=== PATIENT | female | born 1985 | race Caucasian/White ===

== ENCOUNTER 2023-07-04 13:24 | Outpatient (AMB) | payer OTHER, SELFPAY ==
--- NOTE | 2023-07-04 13:25 | MHC.PC.OV ---
Vital Signs 07/04/23 13:26 Height 5 ft 4 in Weight 234 lb BMI 40.2 BP 128/78 Blood Pressure Location Lt brachial Position Sitting Pulse 80 Pulse Source Pulse Oximeter Pulse Oximetry (%) 95 Oxygen Delivery Method Room Air Intake Visit Reasons: New patient-requesting physical Allergies No Known Allergies Allergy (Verified 07/04/23 13:26) Medication List - Last Reconciled 07/04/23 by Aneudy Soni MD albuterol sulfate 90 mcg/actuation (Ventolin HFA) 2 puffs inhalation Q4-6H PRN 30 days baclofen 10 mg PO TID hydroxyzine HCl 50 mg PO TID PRN methadone 155 mg PO DAILY methadone 155 mg PO DAILY omeprazole 20 mg PO DAILY sertraline 50 mg PO DAILY sofosbuvir-velpatasvir 200-50 mg (Epclusa) 1 tab PO DAILY trazodone 50 mg PO BEDTIME PRN Tobacco use date assessed: 07/04/23 Dental Screening Dental Screen Date: 07/04/23 Did you have a dental visit in the last 12 months?: No Did you have a dental problem in the last 6 months where you did not have access to dental care?: No Was dental information given to patient?: No HPI New patient-requesting physical HPI Details 38-year-old obese female smoker with hypertension with a history of polysubstance abuse, bipolar disorder. Patient has a history of endocarditis of the tricuspid valve, GERD PTSD. Patient last seen in 2020. Review of the notes April 2023 ER visit for drug testing. February 2023 ER visit homeless had suicidal tendencies. Diagnosis exacerbation of chronic bipolar disorder with opiate dependence. August 2022 ER visit for IV heroin having left arm cellulitis [facility] Medical History (Updated 07/04/23 @ 14:10 by Aneudy Soni MD) Hepatitis C Tobacco abuse Hypertension GERD (gastroesophageal reflux disease) Bipolar disorder Migraine Asthma Endocarditis of tricuspid valve Polysubstance abuse Surgical History No pertinent past surgical history Family History (Updated 07/04/23 @ 13:55 by Aneudy Soni MD) Father No problems noted. Mother No problems noted. Maternal Aunt Cancer Cervical cancer Maternal Uncle Cancer Other Mental health disorder Substance use disorder Social History (Updated 07/04/23 @ 13:56 by Aneudy Soni MD) Housing: Other (In a program) Alcohol intake: former Patient Tobacco Use Status: Current everyday Tobacco user Tobacco use type: Cigarette Cigarette Packs Per Day: 1 Cigarettes Per Day: 20 Years Smoked: started 12 years old e-Cigarette/Vaping Use: Never Used Second Hand Smoke Exposure: No service: No Current occupational status: disabled Cognitive needs: No Hearing needs: No Vision needs: No Questionnaire PHQ-9 Over the last 2 weeks, how often have you been bothered by any of the following problems? 1. Little interest or pleasure in doing things: not at all 2. Feeling down, depressed, or hopeless: several days 3. Trouble falling or staying asleep, or sleeping too much: several days 4. Feeling tired or having little energy: several days 5. Poor appetite or overeating: not at all 6. Feeling bad about yourself - or that you are a failure or have let yourself or your family down: several days 7. Trouble concentrating on things, such as reading the newspaper or watching television: more than half the days 8. Moving or speaking so slowly that other people could have noticed. Or the opposite - being so fidgety or restless that you have been moving around a lot more than usual: nearly every day 9. Thoughts that you would be better off or of hurting yourself in some way: not at all Total score: 9 Depression Screening Interpretation: Positive Depression Screening Follow-up: Community Mental Health Worker F/U Source: Developed by Drs. Misbah Calvo, Sandra Torres, Solomon Hamlin and colleagues, with an educational gabe from [employer]. Thrive Questionnaire Date Thrive assessed: 07/04/23 I am a: Patient What is your living situation today?: I have a steady place to live Within the past 12 months, did the food you bought not last and you didn't have the money to get more?: Never true Within the past 12 months, did you worry whether your food would run out before you got money to buy more?: Never true Do you have trouble paying for medicines?: No Do you have trouble getting transportation to medical appointments?: No Do you have trouble paying your heating and electricity bill?: No Do you have trouble taking care of your child, family member or friend?: No Do you have trouble with day-to-day activities such as bathing, preparing meals, shopping, managing finances, etc.?: No Are you currently unemployed and looking for a job?: No Are you interested in more education?: No Currently or been in a relationship where the following occur: no concerns reported AUDIT C Alcohol Use Questionnaire (AUDIT-C) 1. How often do you have a drink containing alcohol?: Never Total Score: 0 Score Reviewed/Action Taken: No ELIZABETH-7 AMB Questionnaire ELIZABETH-7 Date ELIZABETH - 7 assessed: 07/04/23 Feeling nervous, anxious, or on edge: 3 = Nearly every day Not being able to stop or control worryin = Nearly every day Worrying too much about different things: 3 = Nearly every day Trouble relaxin = Nearly every day Being so restless that it is hard to sit still: 3 = Nearly every day Becoming easily annoyed or irritable: 3 = Nearly every day Feeling afraid as if something awful might happen: 3 = Nearly every day Total ELIZABETH-7 score (0-4 normal; 5-9 mild; 10-14 moderate; 15-21 severe): 21 Source: Developed by Drs. Misbah Calvo, Sandra Torres, Solomon Hamlin and colleagues, with an educational gabe from [employer]. ELIZABETH-7 Assessment Billing ELIZABETH-7 Assessment Tool: ELIZABETH-7 Assessment 40164 Review of Systems Const Denies poor appetite and Denies weakness Eyes Denies no additional complaints ENT Reports Normal hearing present, Denies dizziness, Denies nasal congestion, Denies tinnitus and Denies sore throat Card Denies chest pain, Denies syncope, Denies rapid heart rate and Denies dyspnea Resp Denies cough and Denies dyspnea GI Denies change in stool character, Reports constipation, Denies diarrhea, Denies nausea and Denies vomiting Denies urinary frequency, Denies difficulty voiding and Denies dysuria Neuro Reports Normal hearing present, Denies confusion, Denies dizziness, Denies syncope and Denies weakness Psych Denies confusion Physical exam (Primary Care) Vital Signs: Last Vital Signs Pulse 80 07/04/23 13:26 BP 128/78 07/04/23 13:26 Pulse Ox 95 07/04/23 13:26 Oxygen Delivery Method Room Air 07/04/23 13:26 BMI result Body Mass Index 40.2 Tobacco/Smoking Status: Tobacco use Status Tobacco use date assessed 07/04/23 07/04/23 13:27 Patient Tobacco Use Status Current everyday Tobacco 07/04/23 13:56 Tobacco use type Cigarette 07/04/23 13:56 e-Cigarette/Vaping Use Never Used 07/04/23 13:56 PHQ-9: PHQ-9 Score PHQ-9: Total score 9 07/04/23 13:50 Depression Screening Interpretation: Positive Depression Screening Follow-up: Community Mental Health Worker F/U Thrive Assessment: Date of Thrive Assessment Date Thrive assessed 07/04/23 07/04/23 13:40 Currently or been in a relationship where the following occur: no concerns reported Const General: No confusion Orientation/consciousness: No confusion HENMT Head: Yes normocephalic Ears: external ears normal and TM's normal bilaterally Face and sinus: Yes normal facial exam Mouth: moist mucous membranes Throat: Yes tonsils normal Eyes Conjunctivae: conjunctivae normal Pupils: Equal, round and reactive pupils present and Pupil accommodation reflex normal Direct Ophthalmoscopy: normal light reflex Neck Neck: No lymphadenopathy Thyroid: Thyroid normal Chest Chest palpation & inspection: normal inspection of the chest Resp Effort & Inspection: normal respiratory effort and no audible wheezes Auscultation: clear to auscultation bilaterally, no crackles, no wheezes and lung sounds not diminished Cardio Rate: regular rate Rhythm: regular rhythm Peripheral pulses: radial pulses present and dorsalis pedis present GI Palpation (GI): no masses Auscultation: normal bowel sounds and normoactive bowel sounds Rectal Exam - Female: deferred Skin General skin exam: no rashes or lesions noted Rashes: no rashes Neuro General: No confusion Cranial nerves: Yes Equal, round and reactive pupils present and Yes Normal hearing present Cognition (Neuro): normal cognition Gait exam (Neuro): Normal gait present Motor exam (neuro): 5/5 motor strength present throughout Deep tendon reflexes (DTR's): Right brachioradialis reflex intensity grade: 2+, Left brachioradialis reflex intensity grade: 2+, Right patellar reflex intensity grade: 2+ and Left patellar reflex intensity grade: 2+ Extrem General: No edema Assessment and Plan Assessment & Plan (1) Annual physical exam: Code(s): Z00.00 - Encounter for general adult medical examination without abnormal findings (2) Polysubstance abuse: Comment: Suboxone, heroin abuse, overdose February 2009, opiate addiction, overdose again May 2020 Code(s): F19.10 - Other psychoactive substance abuse, uncomplicated Plan: Patient continues on the methadone clinic (3) Tobacco abuse: Code(s): Z72.0 - Tobacco use Plan: Patient is strongly advised to stop (4) GERD (gastroesophageal reflux disease): Code(s): K21.9 - Gastro-esophageal reflux disease without esophagitis Plan: Avoid the foods that causes that usually spicy foods, tomato products, juices, coffee, soda and foods that your sensitive to. After eating do not lie down, allow 3-4 hours before in lie down. And keep the head of bed above 30 degrees to avoid the acid from going up. (5) Bipolar disorder: Comment: WILDER Mccollum Code(s): F31.9 - Bipolar disorder, unspecified Qualifiers: Active/Remission status: currently active Current bipolar episode type: mixed Current episode severity: moderate Qualified Code(s): F31.62 - Bipolar disorder, current episode mixed, moderate Plan: Continue with counseling and therapy patient is on sertraline 50 mg once a day hydroxyzine 50 mg 3 times a day (6) Asthma: Code(s): J45.909 - Unspecified asthma, uncomplicated Plan: Stop smoking! (7) Hepatitis C: Comment: Dr. Pineda treatment 2010, Code(s): B19.20 - Unspecified viral hepatitis C without hepatic coma (8) Methadone maintenance therapy patient: Code(s): F11.20 - Opioid dependence, uncomplicated (9) Cervical cancer screening: Code(s): Z12.4 - Encounter for screening for malignant neoplasm of cervix (10) Left-sided chest pain: Code(s): R07.9 - Chest pain, unspecified Orders: Orders Comprehensive Met. Panel Today B19.20 - Unspecified viral hepatitis C without hepatic coma Vitamin B12 and Folate Today B19.20 - Unspecified viral hepatitis C without hepatic coma Hepatitis C Genotype Today B19.20 - Unspecified viral hepatitis C without hepatic coma Complete Blood Count Auto Diff Today B19.20 - Unspecified viral hepatitis C without hepatic coma Free T4 (Free Thyroxine) Today B19.20 - Unspecified viral hepatitis C without hepatic coma Lipid Panel Today B19.20 - Unspecified viral hepatitis C without hepatic coma, E78.00 - Pure hypercholesterolemia, unspecified Thyroid Stimulating Hormone Today B19.20 - Unspecified viral hepatitis C without hepatic coma Vitamin D 25-OH Total Today B19.20 - Unspecified viral hepatitis C without hepatic coma Hepatitis B,C Profile Today B19.20 - Unspecified viral hepatitis C without hepatic coma, R79.89 - Other specified abnormal findings of blood chemistry Hepatitis C Antibody Reflex Today B19.20 - Unspecified viral hepatitis C without hepatic coma Hepatitis C Viral Load Today B19.20 - Unspecified viral hepatitis C without hepatic coma XR ribs LT min 3V w CXR1V Today R07.9 - Chest pain, unspecified Referrals Gastroenterology Referral B19.20 - Unspecified viral hepatitis C without hepatic coma HAMMERER TAB Referral Z12.4 - Encounter for screening for malignant neoplasm of cervix Medications: New omeprazole 20 mg PO DAILY 30 caps 3RF B19.20 - Unspecified viral hepatitis C without hepatic coma gabapentin 100 mg PO DAILY 30 caps 0RF G62.9 - Polyneuropathy, unspecified Refilled albuterol sulfate 90 mcg/actuation (Ventolin HFA) 2 puffs inhalation Q4-6H 30 days PRN 8.5 grams 2RF shortness of breath or wheezing J45.909 - Unspecified asthma, uncomplicated Coding Level of Care Code New Pt Prev Care 18-39yr([id number] Diagnoses Annual physical exam Z00.00 Polysubstance abuse F19.10 Tobacco abuse Z72.0 GERD (gastroesophageal reflux disease) K21.9 Bipolar disorder, current episode mixed, moderate F31.62 Active/Remission status: currently active Current bipolar episode type: mixed Current episode severity: moderate Asthma J45.909 Hepatitis C B19.20 Methadone maintenance therapy patient F11.20 Cervical cancer screening Z12.4 Left-sided chest pain R07.9 Additional Codes ELIZABETH-7 Assessment Billing - ELIZABETH-7 Assessment Tool: ELIZABETH-7 Assessment 48572 ([id number]) PHQ-9 - 15344 - PHQ-9 Billing: ([id number])
[2023-07-04 13:26] VITALS: BP 128/78; PULSE 80; O2SAT 95; BMI 40.2
== END 2023-07-04 14:13 | disposition home or self-care (01) ==
PROVIDERS: PCP Internal Medicine; Visit Provider Internal Medicine
DX: Z00.00 Encounter for general adult medical examination without abnormal findings (principal); F31.62 Bipolar disorder, current episode mixed, moderate; F17.210 Nicotine dependence, cigarettes, uncomplicated; J45.909 Unspecified asthma, uncomplicated
CPT/HCPCS: 99395

== ENCOUNTER 2023-07-19 06:32 | Inpatient (IN) | payer OTHER, SELFPAY ==
[2023-07-19 06:43] VITALS: BP 134/78; PULSE 110; O2SAT 98
[2023-07-19 06:51] VITALS: BP 109/87; PULSE 104; RESP 18; TEMP 37.1; O2SAT 93; BMI 38.2
--- NOTE | 2023-07-19 06:53 | ED.GENADULT ---
HPI - General Adult General Chief complaint: ETOH/Substance Use Stated complaint: seeking detox Time Seen by Provider: 07/19/23 06:53 Source: patient and EMS Mode of arrival: EMS Limitations: no limitations History of Present Illness HPI narrative: Patient is a 38 year old assigned female at with a history of alcohol and heroin use presenting to the emergency department today with alcohol and heroin withdrawal. Patient states that she was in [facility] but got kicked out and now wants detox elsewhere. Patient denies any dizziness, lightheadedness, abdominal pain, nausea, vomiting, fever, chills, blurry vision, double vision, loss of vision, chest pain, difficulty breathing, shortness of breath, back pain, night sweats, pain with urination, increased urinary frequency, increased urinary urgency, blood in her urine or stool, syncope or a near syncopal episode, recent trauma or falls, bowel incontinence, bladder incontinence, bowel retention, bladder retention, or any other complaints at this time. Relieving factors: none Exacerbating factors: none Associated symptoms: denies other symptoms Treatments prior to arrival: none Related Data Home Medications Medication Instructions Recorded Confirmed baclofen 10 mg tablet 10 mg PO TID 09/28/21 07/19/23 hydroxyzine HCl 50 mg tablet 50 mg PO TID PRN Anxiety 09/28/21 07/19/23 methadone 10 mg/5 mL oral solution 155 mg PO DAILY 07/04/23 07/19/23 sertraline 50 mg tablet 50 mg PO DAILY 07/04/23 07/19/23 sofosbuvir 200 mg-velpatasvir 50 1 tab PO DAILY 07/04/23 07/04/23 mg tablet (Epclusa) trazodone 50 mg tablet 50 mg PO BEDTIME PRN Sleep 07/04/23 07/19/23 Previous Rx's Medication Instructions Recorded albuterol sulfate 90 mcg/actuation 2 puff inhalation Q4-6H PRN 07/04/23 aerosol inhaler (Ventolin HFA) shortness of breath or wheezing 30 days #8.5 grams gabapentin 100 mg capsule 100 mg PO DAILY #30 caps 07/04/23 famotidine 20 mg tablet (Pepcid) 20 mg PO BID #60 tabs 07/07/23 Allergies Allergy/AdvReac Type Severity Reaction Status Date / Time No Known Allergies Allergy Verified 07/19/23 07:05 Review of Systems Constitutional: Constitutional: Reports no additional constitutional complaints, Denies chills, Denies fever(s) and Denies night sweats Eyes: Eyes: Reports no additional eye complaints, Denies blurry vision, Denies change in vision, Denies diplopia, Denies eye discharge, Denies loss of vision and Denies eye pain ENT: Denies dizziness Cardiovascular: Cardiovascular: Reports no additional cardiovascular complaints, Denies chest pain, Denies lightheadedness, Denies Loss of Consciousness and Denies dyspnea Respiratory: Respiratory: Reports no additional respiratory complaints and Denies dyspnea Gastrointestinal: Gastrointestinal: Reports no additional gastrointestinal complaints, Denies abdominal pain, Denies melena, Denies hematochezia, Denies change in bowel habits and Denies change in stool character Genitourinary: Genitourinary: Denies hematuria, Denies urinary frequency, Denies dysuria, Denies urinary incontinence, Denies urinary hesitancy and Denies urinary urgency Musculoskeletal: Musculoskeletal: Reports no additional musculoskeletal complaints, Denies numbness and Denies tingling Neurologic: Denies dizziness, Denies loss of vision, Denies numbness and Denies tingling Psychiatric: Psychiatric: Reports no additional psychiatric complaints Endocrine: Endocrine: Reports no additional endocrine complaints Hematologic/Lymphatic: Hematologic/Lymphatic: Reports no additional hematologic/lymphatic complaints Allergic/Immunologic: Allergic/Immunologic: Reports no additional allergic/immunologic complaints [facility] Past Medical History Attestation statement: The following information was validated with the patient. Source: old records reviewed and nursing notes reviewed Medical History Hepatitis C Tobacco abuse Hypertension GERD (gastroesophageal reflux disease) Bipolar disorder Migraine Asthma Endocarditis of tricuspid valve Polysubstance abuse Surgical History No pertinent past surgical history Family History Family History Father No problems noted. Mother No problems noted. Maternal Aunt Cancer Cervical cancer Maternal Uncle Cancer Other Mental health disorder Substance use disorder Social History Social History Housing: Other Alcohol intake: current Alcohol type: hard liquor Patient Tobacco Use Status: Current everyday Tobacco user Tobacco use type: Cigarette Cigarette Packs Per Day: 1 Cigarettes Per Day: 20 Years Smoked: started 12 years old Smoked in Last 30 Days: Yes e-Cigarette/Vaping Use: Never Used Second Hand Smoke Exposure: No Use of substances other than those prescribed or required for medical reasons: Yes Substance Use Type: Crack/Cocaine and Heroin Substance Use Frequency: Chronic Longstanding Last Used Substance: Just Prior to Admission Any prior treatment program specific to substance use: Yes Advance Directives: No Patient : No service: No Current occupational status: disabled Cognitive needs: No Hearing needs: No Vision needs: No Physical Exam ED Vital Signs: Vital Signs - 24 hr 07/19/23 06:51 07/19/23 06:51 07/19/23 09:37 Temperature 98.7 F 98.7 F 98.4 F Pulse Rate 104 H 104 H 102 H Respiratory Rate 18 18 16 Blood Pressure 109/87 109/87 124/85 Pulse Oximetry 93 93 96 Oxygen Delivery Method Room Air Room Air 07/19/23 11:42 Temperature 98.0 F Pulse Rate 90 Respiratory Rate 16 Blood Pressure 126/79 Pulse Oximetry 94 Oxygen Delivery Method Room Air BMI result Body Mass Index 38.2 Const General: cooperative, no acute distress, alert and awake Nutritional Appearance: well nourished Orientation/consciousness: patient oriented x3 Limitations: no limitations HENMT Head: Yes normal to inspection and Yes atraumatic Ears: hearing grossly normal bilaterally and external ears normal General nose exam: Normal external nose present, no nasal discharge noted and no epistaxis Face and sinus: Yes normal facial exam, No abrasion and No laceration Mouth: Normal oral and palatal mucosa present, no drooling and no muffled voice Eyes General: appearance normal, both eyes and all related structures Periorbital: periorbital findings normal Eyelids: Yes eyelids normal Conjunctivae: conjunctivae normal Pupils: Equal, round and reactive pupils present EOM: EOMs intact bilaterally Neck Neck: Yes normal visual inspection, Yes full ROM and Yes no lymphadenopathy Chest Chest palpation & inspection: normal inspection of the chest Resp Effort & Inspection: normal respiratory effort and able to speak in complete sentences Auscultation: clear to auscultation bilaterally Cardio Rate: tachycardic Rhythm: regular rhythm GI Inspection: Yes normal to inspection Neuro General: patient oriented x3 and moves all extremities Cranial nerves: Yes Equal, round and reactive pupils present Cognition (Neuro): normal cognition Motor exam (neuro): 5 motor strength present throughout Sensory Exam: Normal double simultaneous stimulation for sensation Coordination: [id number] test normal Extrem General: Yes normal to inspection, Yes full ROM and Yes capillary refill normal Psych Appearance: grossly normal Mental Status: mental status grossly normal Affect: normal affect Attitude: cooperative Thought process: Normal thought process present Thought content: Normal thought content present Insight: Good insight present (Psych) Medications Administered Generic Name Dose Route Start Last Admin Trade Name Freq PRN Reason Stop Dose Admin Cefuroxime Axetil 250 mg 07/19/23 10:45 07/19/23 11:40 Cefuroxime Axetil 250 Mg Tablet PO 07/26/23 18:00 250 mg BID LAMONT Administration Discontinued Medications Generic Name Dose Route Start Last Admin Trade Name Freq PRN Reason Stop Dose Admin Lorazepam 2 mg 07/19/23 06:54 07/19/23 07:15 Lorazepam 1 Mg Tablet PO 07/19/23 06:55 2 mg ONCE ONE Administration Medical Decision Making Medical Decision Making [facility] Narrative: Patient is a 38 year old assigned female at with a history of alcohol abuse and heroin use presenting to the emergency department today requesting detox. Patient's physical exam showed an individual in obvious withdrawal. Patient's blood work was unremarkable. Patient's urine showed evidence of a UTI, PO antibiotics initiated. Initially planned for patient to be a detox bed search however, the patient persistently had elevated CIWAs even after PO Ativan and appeared to be in moderate withdrawal. I initiated the phenobarb protocol. Patient's clinical presentation is not consistent with sepsis (@1145). I spoke with the hospitalist who agreed to admission. I explained my physical exam findings as well as all test results to the patient and the patient's mother. I answered all questions asked by the patient and the patient's mother. Patient and the patient's mother verbalized agreement and understanding with this treatment plan and admission. Differential Diagnosis Differential Diagnoses: The differential diagnosis associated with the presentation includes UTI Heoin withdrawal Alcohol withdrawal Admission/Observation Consideration of admission/observation: Escalation of care including admission/observation considered Patient admitted. Consult Healthcare Provider Management of the patient was discussed with: Hospitalist (agreed to admission.) Lab Data [facility] Lab Attestation statement: I reviewed the patient's lab results. My interpretation of these studies and their corresponding values is that they are grossly normal with the exception of the urine which shows evidence of an acute UTI. 07/19/23 07:15 07/19/23 07:15 Labs: Lab Results 07/19/23 07/19/23 Range/Units 07:15 10:15 WBC 9.0 (4.8-10.8) X10*3/uL RBC 4.36 (4.20-5.50) X10*6/uL Hgb 11.7 L (12.0-16.0) g/dl Hct 35.3 L (37.0-47.0) % MCV 81.0 (80.0-98.0) fL MCH 26.8 L (27.0-33.0) pg MCHC 33.1 (31.0-35.0) g/dl RDW 14.4 (11.0-16.0) % Plt Count 245 (160-400) X10*3/uL MPV 9.2 L (9.4-12.3) fL Immature Gran % (Auto) 0.3 (0.0-0.4) % Neut % (Auto) 70.5 (45-73) % Lymph % (Auto) 18.1 L (20-40) % [place] % (Auto) 10.4 (2-11) % Eos % (Auto) 0.3 (0-4) % Baso % (Auto) 0.4 (0-2) % Lymph # (Auto) 1.6 (1.2-4.9) X10*3/uL [place] # (Auto) 0.9 (0.1-1.2) X10*3/uL Eos # (Auto) 0.0 (0.0-0.4) X10*3/uL Baso # (Auto) 0.0 (0.0-0.2) X10*3/uL Abs Immat Gran (auto) 0.03 (0.00-0.03) X10*3/uL Absolute Neuts (auto) 6.4 (2.0-8.3) x10*3/uL Absolute Nucleated RBC 0.000 (0.0-0.012) X10*3/uL Nucleated RBC % (auto) 0.0 (0.0-0.2) /100WBC Sodium 138 (135-145) mmol/L Potassium 3.5 (3.3-5.1) mmol/L Chloride 106 (96-108) mmol/L Carbon Dioxide 21 L (22-29) mmol/L Anion Gap 15 (12-20) BUN 16 (9-16) mg/dL Creatinine 0.67 (0.5-1.4) mg/dL Estim Creat Clear Calc 142.5 Estimated GFR > 60 Random Glucose 109 (60-115) mg/dL Calcium 9.1 (8.4-10.2) mg/dL Total Bilirubin 0.2 (0.0-1.0) mg/dL AST 43 H (5-31) U/L ALT 37 H (0-31) U/L Alkaline Phosphatase 84 (39-117) U/L Total Protein 7.7 (6.5-8.0) g/dL Albumin 3.7 (3.5-5.0) g/dL Urine Color Dark Yellow Urine Appearance Cloudy Urine pH 5.5 (5.0-9.0) Ur Specific [place] >= 1.030 H (1.005-1.025) Urine Protein 30 (1+) H (Neg-Trace) mg/dL Urine Glucose (UA) Negative (Negative) mg/dL Urine Ketones Negative (Negative) mg/dL Urine Blood Trace H (Negative) Urine Nitrite Negative (Negative) Ur Leukocyte Esterase Moderate (2+) H (Negative) Urine RBC 3-5 H (0-2) /HPF Urine WBC >50 H (0-5) /HPF Ur Squamous Epith Cells 6-10 (0-2) /HPF Urine Bacteria 2+ (None Seen) Hyaline Casts 0-2 (0-2) /LPF Urine Test NEGATIVE (NEGATIVE) Salicylates < 5.0 L (15-30) mg/dL Urine Opiates Screen POSITIVE H (Not Detect) Urine Fentanyl Screen POSITIVE H (Not Detect) Acetaminophen < 17 (<30) mcg/mL Ur Barbiturates Screen Not Detected (Not Detect) Ur Phencyclidine Scrn Not Detected (Not Detect) Ur Amphetamines Screen Not Detected (Not Detect) U Benzodiazepines Scrn Not Detected (Not Detect) Urine Cocaine Screen POSITIVE H (Not Detect) U Marijuana (THC) Screen Not Detected (Not Detect) Ethyl Alcohol 16 mg/dL COVID-19 ([facility]) Negative (Negative) COVID-19 Clin Com See Note Independent Historian Clinical information obtained from an independent historian. History obtained from or confirmed by: Parent (patient's mother provided additional history and confirmed the history provided by the patient. ) and EMS (EMS provided additional history and confirmed the history provided by the patient.) Critical Care Time Critical Care Time Critical Care Time: Yes Total Critical Care Time: 45 Attestation: I spent 45 minutes of Critical Care Time with this patient. This does not include time spent on separately reported billable procedures. Discharge Plan Discharge Clinical Impression: Alcohol abuse, Heroin use, Urinary tract infection Patient Disposition: Admitted As Inpatient Prescriptions: No Action famotidine [Pepcid] 20 mg tablet 20 mg PO BID Qty: 60 2RF sertraline 50 mg tablet 50 mg PO DAILY Epclusa 200-50 mg tablet 1 tab PO DAILY trazodone 50 mg tablet 50 mg PO BEDTIME PRN (Reason: Sleep) methadone 10 mg/5 mL solution 155 mg PO DAILY Rx Instructions: [facility] in [place] albuterol sulfate [Ventolin HFA] 90 mcg/actuation HFA aerosol inhaler 2 puff inhalation Q4-6H PRN (Reason: shortness of breath or wheezing) 30 Days Qty: 8.5 2RF gabapentin 100 mg capsule 100 mg PO DAILY Qty: 30 0RF baclofen 10 mg tablet 10 mg PO TID hydroxyzine HCl 50 mg tablet 50 mg PO TID PRN (Reason: Anxiety)
--- NOTE | 2023-07-19 07:41 | PC.NURSE ---
pt a&ox3, vss and up to date. pt admits to drinking 1L of hard liquor per day. current CIWA = 13. pt also admits to using crack/heroin daily and has been a chronic user or the past 15 years. pt states last use of heroin was 2 day ago and crack/cocaine was just prior to admission. COWS = 15. pt also states that she goes to methadone clinic ([facility] in [place]) - states she uses 155mg daily - last dose was 07/17 - will verify. pt seemingly diaphoretic and slightly tremulous. pt c/o 7/10 generalized body aches. provider aware of CIWA/COWS. pt medicated per provider order. respirations even and unlabored. call ko placed within reach.
[2023-07-19 07:45] LABS: Alanine Aminotransferase 37 U/L (0-31); Albumin Level 3.7 g/dL (3.5-5.0); Alkaline Phosphatase 84 U/L (39-117); Anion Gap 15 (12-20); Aspartate Amino Transferase 43 U/L (5-31); Bilirubin Total 0.2 mg/dL (0.0-1.0); Blood Urea Nitrogen 16 mg/dL (9-16); Calcium 9.1 mg/dL (8.4-10.2); Carbon Dioxide 21 mmol/L (22-29); Chloride 106 mmol/L (96-108); Creatinine Clr Calc Pharmacy 142.5; Estimated Glomerular Filt Rate > 60; Ethanol 16 mg/dL; Glucose Random 109 mg/dL (60-115); Potassium 3.5 mmol/L (3.3-5.1); Sodium 138 mmol/L (135-145); Total Protein 7.7 g/dL (6.5-8.0)
--- NOTE | 2023-07-19 07:45 | PC.NURSE ---
security called to obtain pt's belongings - belongings brought to [place]. denies SI/HI at this time. in search of detox at this time.
--- NOTE | 2023-07-19 08:34 | PC.NURSE ---
belongings pt belongings obtained by security and in [place].
--- NOTE | 2023-07-19 08:50 | PC.NURSE ---
methadone dose verified by clinic. RN at clinic refused to give name/hung up on phone before this RN was able to ask. verification form filled out/documented and sent to pharmacy.
--- NOTE | 2023-07-19 09:12 | PC.NURSE ---
Neema Perez (mother) [phone] pt's mother called or status update on pt - pt ok'd information to be relayed. pt's mother states she will come to visit some time today when able.
--- NOTE | 2023-07-19 09:34 | PC.NURSE ---
pt remains a&ox3, vss and up to date aside from bouncing from nsr/tachycardia. updated CIWA = 17 - will notify provider. pt remains tremulous, diaphoretic, and agitated. pt states she us also anxious and has a headache. pt also verbalizing she is having auditory hallucinations stating that she is hearing multiple people talking about her. she said she states she is hearing people talk about what happened at the hotel prior to ed arrival. states that the people are sounding rude. will notify provider.
[2023-07-19 09:37] VITALS: BP 124/85; PULSE 102; RESP 16; TEMP 36.9; O2SAT 96
--- NOTE | 2023-07-19 09:38 | MHC.RECOVRN ---
T/w met with pt to discuss recovery goals. Pt appears diaphoretic at this time with occasional grimace. Is alert, reporting symptoms of withdrawal- nausea, body aches, abd pain. Pt reports she has a home methadone clinic in [facility], and she last dosed 2 days ago. Pt's primary RN verified dose, and is pending pharmacy approval. Pt reports she has previously been section 35'd to [facility], and was up until last week at [facility]. Pt reports daily use of crack, heroin, and approx 1 liter of ETOH daily. Reports herion use is via injection and uses a bag or two every few hours, harm reduction discussed. Reports she has had seizures from ETOH withdrawal before, states she has been drinking every day and last use was a few hours prior to coming in to hosp. According to chart review, pt received ativan for elevated CIWA. Pt expressing desire to go to detox. Has no concerns about which detox she goes to should a bed be available.
--- NOTE | 2023-07-19 10:09 | MHC.RECOVRN ---
Addendum entered by Adina Kamara RN 07/19/23 11:28: [facility] has said [facility] do not have beds today,awaiting response from the other ATS facilities. Original Note: ATS referral sent to: [facility], [facility], and [facility].
--- NOTE | 2023-07-19 10:18 | PC.NURSE ---
urine obtained and sent to lab.
[2023-07-19 11:42] VITALS: BP 126/79; PULSE 90; RESP 16; TEMP 36.7; O2SAT 94
--- NOTE | 2023-07-19 11:42 | PC.NURSE ---
vss and up to date. nsr on the cardiac rehabilitation specialist. updated CIWA = 16 - will notify provider. pt's mother now bedside for support. respirations even and unlabored. call ko placed within reach.
--- NOTE | 2023-07-19 11:58 | PC.NURSE ---
Addendum entered by Rayna Ortiz 07/19/23 12:01: methadone verification form as well as confirmation form placed in pt's chart at this time. Original Note: methadone dose still not verified at this time. called pharmacy about update - they stated that they did not receive fax. confirmation came back that fax was sent successfully at 08:54 this am. scanned/faxed methadone verification form to pharmacy for 2nd time - will call back shortly to verify that they received newest scan.
--- NOTE | 2023-07-19 12:06 | HE.PHANOTE ---
RE METHADONE PT GETS 155MG OF METHADONE FROM [facility], LAST DOSED 07/17/23. [place]
--- NOTE | 2023-07-19 12:37 | PC.NURSE ---
admitting provider bedside w/ pt and pt's mother discussing plan of action at this time. pt medicated per provider order. pt and mother aware of plan of care at this time. call ko placed within reach.
--- NOTE | 2023-07-19 13:22 | PM.IMHP ---
History of Present Illness Date of Service: 07/19/23 Chief Complaint: EToH/Methadone withdraw 38-year-old female with a history of polysubstance abuse receiving methadone from [facility] are presents today with what she describes as methadone withdrawal. She states she has also been drinking 1 L of vodka daily for awhile . She states her last drink was midnight. She states she was using heroin and cocaine to combat her methadone withdrawal. She was not taking her methadone as she states she was kicked out of can not RO program and now wishes detox. In the emergency room, she did not exhibit myron alcohol withdrawal but given the amounts will be admitted on CIWA protocol and methadone will be restarted. Mother is at bedside and questions were answered Review of Systems Review of Systems: denies chest pain Denies shortness of breath Denies nausea vomiting diarrhea Denies fever chills PMFSH Medical History Hepatitis C Tobacco abuse Hypertension GERD (gastroesophageal reflux disease) Bipolar disorder Migraine Asthma Endocarditis of tricuspid valve Polysubstance abuse Family History Father No problems noted. Mother No problems noted. Maternal Aunt Cancer Cervical cancer Maternal Uncle Cancer Other Mental health disorder Substance use disorder Surgical History No pertinent past surgical history Social History Housing: Other Alcohol intake: current Alcohol type: hard liquor Patient Tobacco Use Status: Current everyday Tobacco user Tobacco use type: Cigarette Cigarette Packs Per Day: 1 Cigarettes Per Day: 20 Years Smoked: started 12 years old Smoked in Last 30 Days: Yes e-Cigarette/Vaping Use: Never Used Second Hand Smoke Exposure: No Use of substances other than those prescribed or required for medical reasons: Yes Substance Use Type: Crack/Cocaine and Heroin Substance Use Frequency: Chronic Longstanding Last Used Substance: Just Prior to Admission Any prior treatment program specific to substance use: Yes Advance Directives: No Patient : No service: No Current occupational status: disabled Cognitive needs: No Hearing needs: No Vision needs: No Meds Allergies Allergy/AdvReac Type Severity Reaction Status Date / Time No Known Allergies Allergy Verified 07/19/23 07:05 Active Medications: Current Medications Enoxaparin Sodium (Enoxaparin Sodium 40 Mg/0.4 Ml Syringe) 40 mg SUBCUT Q24H [facility] Famotidine (Famotidine 20 Mg Tablet) 20 mg PO BID [facility] Gabapentin (Gabapentin 100 Mg Capsule) 100 mg PO DAILY [facility] Sodium Chloride (Ns) 1,000 mls @ 100 mls/hr IVCONT .Q10H [facility] Ceftriaxone Sodium 2 gm/ (Sodium Chloride) 50 mls @ 100 mls/hr IV ONCE ONE Stop: 07/19/23 13:33 Methadone HCl (Methadone Hcl 20 Mg/2 Ml Oral.Conc) 155 mg PO DAILY [facility] Pharmacy Consult (Consult Rx Etoh Phenob Im/Po) 1 each MISCELLANE ONCE PRN; Protocol PRN Reason: Consult order Phenobarbital (Phenobarbital 15 Mg Tablet) 45 mg PO BID [facility]; Protocol Stop: 07/21/23 09:01 Phenobarbital (Phenobarbital 30 Mg Tablet) 30 mg PO BID [facility]; Protocol Stop: 07/22/23 21:01 Phenobarbital (Phenobarbital 30 Mg Tablet) 30 mg PO DAILY [facility]; Protocol Stop: 07/25/23 09:01 Phenobarbital (Phenobarbital 15 Mg Tablet) 15 mg PO DAILY [facility] Stop: 07/21/23 09:01 Phenobarbital Sodium (Phenobarbital Sodium 130 Mg/Ml Vial Im Q3hx2) 178 mg IM Q3H [facility]; Protocol Stop: 07/19/23 18:01 Sertraline HCl (Sertraline Hcl 50 Mg Tablet) 50 mg PO DAILY [facility] Sodium Chloride (0.9 % Sodium Chloride Flush 3 Ml Syringe) 3 ml IVFLUSH QSHIFT [facility] Home Medications Medication Instructions Recorded Confirmed Last Taken Type baclofen 10 mg tablet 10 mg PO TID 09/28/21 07/19/23 Unknown History hydroxyzine HCl 50 mg tablet 50 mg PO TID PRN Anxiety 09/28/21 07/19/23 Unknown History methadone 10 mg/5 mL oral solution 155 mg PO DAILY 07/04/23 07/19/23 07/17/23 History sertraline 50 mg tablet 50 mg PO DAILY 07/04/23 07/19/23 Unknown History sofosbuvir 200 mg-velpatasvir 50 1 tab PO DAILY 07/04/23 07/04/23 Unknown History mg tablet (Epclusa) trazodone 50 mg tablet 50 mg PO BEDTIME PRN Sleep 07/04/23 07/19/23 Unknown History risperidone 2 mg tablet 2 mg PO BEDTIME 07/19/23 Unknown History Physical Exam Vital Signs and Narrative: Vital Signs: Last Vital Signs Temp 98.0 F 07/19/23 11:42 Pulse 90 07/19/23 11:42 Resp 16 07/19/23 11:42 BP 126/79 07/19/23 11:42 Pulse Ox 94 07/19/23 11:42 O2 Del Method Room Air 07/19/23 11:42 BMI result Body Mass Index 38.2 Const: Other: awake alert speech slow Resp: Other: clear to auscultation bilaterally no rales rhonchi wheezes Cardio: Other: no S4; S1-S2;no S3 murmurs rubs or gallops GI: Other: soft nontender nondistended Neuro: Other: cranial nerves 2-12 grossly intact as tested. Motor is 5/5 all extremities. Sensation is intact. Cognition is appropriate Extrem: Other: no edema bilaterally Results Labs 07/19/23 07:15 07/19/23 07:15 Labs: Laboratory Results - last 24 hr 07/19/23 07/19/23 07:15 10:15 MCV 81.0 MCH 26.8 L MCHC 33.1 RDW 14.4 Plt Count 245 MPV 9.2 L Immature Gran % (Auto) 0.3 Neut % (Auto) 70.5 Lymph % (Auto) 18.1 L [place] % (Auto) 10.4 Eos % (Auto) 0.3 Baso % (Auto) 0.4 Lymph # (Auto) 1.6 [place] # (Auto) 0.9 Eos # (Auto) 0.0 Baso # (Auto) 0.0 Abs Immat Gran (auto) 0.03 Absolute Neuts (auto) 6.4 Absolute Nucleated RBC 0.000 Nucleated RBC % (auto) 0.0 Anion Gap 15 Estim Creat Clear Calc 142.5 Estimated GFR > 60 Random Glucose 109 Calcium 9.1 Total Bilirubin 0.2 AST 43 H ALT 37 H Alkaline Phosphatase 84 Total Protein 7.7 Albumin 3.7 Urine Color Dark Yellow Urine Appearance Cloudy Urine pH 5.5 Ur Specific [place] >= 1.030 H Urine Protein 30 (1+) H Urine Glucose (UA) Negative Urine Ketones Negative Urine Blood Trace H Urine Nitrite Negative Ur Leukocyte Esterase Moderate (2+) H Urine RBC 3-5 H Urine WBC >50 H Ur Squamous Epith Cells 6-10 Urine Bacteria 2+ Hyaline Casts 0-2 Urine Test NEGATIVE Salicylates < 5.0 L Urine Opiates Screen POSITIVE H Urine Fentanyl Screen POSITIVE H Acetaminophen < 17 Ur Barbiturates Screen Not Detected Ur Phencyclidine Scrn Not Detected Ur Amphetamines Screen Not Detected U Benzodiazepines Scrn Not Detected Urine Cocaine Screen POSITIVE H U Marijuana (THC) Screen Not Detected Ethyl Alcohol 16 COVID-19 ([facility]) Negative COVID-19 Clin Com See Note Assessment and Plan (1) Polysubstance abuse: Status: Acute (2) Urinary tract infection: Qualifiers: Urinary tract infection type: acute cystitis Hematuria presence: without hematuria Qualified Code(s): N30.00 - Acute cystitis without hematuria Status: Acute Plan 38-year-old female with history of polysubstance abuse presents today after missing several days of methadone and treating herself with IV heroin to avoid withdrawal. She also states she has been drinking 1 L of vodka for quite some time. Last drink midnight 03/14/2023 1.Polysubstance abuse - restart methadone at outpatient dosing - care team consult when medically appropriate 2.Alcohol abuse - not active withdrawal at this point given last drink within 24 hours; high risk given volume of alcohol consumed daily - CIWA scale - phenobarb protocol 3. UTI - urine culture sent await completion - empiric ceftriaxone - blood cultures x2 full code Lovenox patient will require 2 midnights of inpatient stay going forward to treat for alcohol withdrawal with phenobarb protocol. This cannot be achieved a lesser acute setting Time Spent With Patient Time: Total time managing care of this patient today ____ minutes. Quality Stroke Does the patient have a stroke diagnosis?: No VTE Prior VTE?: No VTE Risk Level:: Medical - moderate - high VTE Device Contraindication: Treatment Not Indicated VTE Drug Contraindication: N/A - Med Ordered
--- NOTE | 2023-07-19 13:40 | PC.NURSE ---
phlebotomy bedside obtaining cultures - will administer abx and other medications when lbs are obtained and sent.
--- NOTE | 2023-07-19 14:25 | PHA.MEDREC ---
Pharmacy Consult ? Medication Reconciliation Pharmacy has completed the medication reconciliation.
--- NOTE | 2023-07-19 14:31 | PC.NURSE ---
abx medication ordered incorrectly - pharmacy notified/aware. states they will update shortly.
--- NOTE | 2023-07-19 15:03 | PC.NURSE ---
attempted to give report to RN on med tele - RN unavailable at this time. tigertexted RN/told them to call when able. will try again shortly.
--- NOTE | 2023-07-19 15:12 | PC.NURSE ---
report given to the floor
--- NOTE | 2023-07-19 15:17 | PC.NURSE ---
pt medicated per provider order. report given to RN. will notify transport.
[2023-07-19 15:39] VITALS: BP 126/66; PULSE 88; RESP 20; TEMP 36.7; O2SAT 92
[2023-07-19 15:42] VITALS: BMI 37.4
--- NOTE | 2023-07-19 15:50 | PC.NURSE ---
pt up to floor, very lethargic/drowsy, dozing off during admission assessment. Safety precautions in place, bed alarm on, call ko within reach, pt encouraged to call for assistance.
[2023-07-19 19:00] VITALS: BP 128/76; PULSE 95; RESP 20; TEMP 36.2; O2SAT 93
[2023-07-20] VITALS: BP 131/75; PULSE 84; RESP 16; TEMP 36.4; O2SAT 93
[2023-07-20 04:00] VITALS: BP 133/81; PULSE 86; RESP 18; TEMP 36; O2SAT 93
[2023-07-20 07:33] VITALS: BP 129/76; PULSE 76; RESP 20; TEMP 36.8; O2SAT 90
--- NOTE | 2023-07-20 08:40 | MHC.CM.PN ---
CM met with Patient at bedside and addressed IMM with her, providing Patient with the original and placing a copy on the chart. Patient was staying at the [facility] in [facility] but she states that she is not able to return there and is now homeless. Patient states that her Mother/Neema is her HCP but that she has no involved family nor friends. R/T Polysubstance abuse, Patient may benefit from a Recovery consult to assist with disposition.Patient obtains her Methadone from [facility] and her PCP is Dr. Amado Po. ILENE has initiated and will follow for dc planning.
[2023-07-20 11:35] VITALS: BP 124/85; PULSE 79; RESP 20; TEMP 36.6; O2SAT 97
--- NOTE | 2023-07-20 12:17 | HO.PM.IMPN ---
Subjective Subjective Date of Service: 07/20/23 Interval History: no acute events overnight. CIWA remains 4-5. Tolerant a protocol Review of Systems denies chest pain Denies shortness of breath Denies nausea vomiting diarrhea Denies fever chills Physical Exam Vital Signs: Vital Signs: Last Vital Signs Temp 97.9 F 07/20/23 11:35 Pulse 79 07/20/23 11:35 Resp 20 07/20/23 11:35 BP 124/85 07/20/23 11:35 Pulse Ox 97 07/20/23 11:35 O2 Del Method Room Air 07/20/23 11:35 BMI result Body Mass Index 37.4 Const: Other: somnolent and arousable; more alert than yesterday Resp: Other: clear to auscultation bilaterally no rales rhonchi wheezes Cardio: Other: no S4; S1-S2;no S3 murmurs rubs or gallops GI: Other: soft nontender nondistended Neuro: Other: cranial nerves 2-12 grossly intact as tested. Motor is 5/5 all extremities. Sensation is intact. Cognition is appropriate Extrem: Other: no edema bilaterally Objective Data Active Medications Enoxaparin Sodium (Enoxaparin Sodium 40 Mg/0.4 Ml Syringe) 40 mg SUBCUT Q24H [facility] Last Admin: 07/19/23 15:10 Dose: 40 mg Documented By: NATASHA Famotidine (Famotidine 20 Mg Tablet) 20 mg PO BID [facility] Last Admin: 07/20/23 08:09 Dose: 20 mg Documented By: YADI Gabapentin (Gabapentin 100 Mg Capsule) 100 mg PO DAILY [facility] Last Admin: 07/20/23 08:09 Dose: 100 mg Documented By: YADI Hydroxyzine HCl (Hydroxyzine Hcl 10 Mg Tablet) 10 mg PO Q6H PRN PRN Reason: anxiety/restlessness Last Admin: 07/20/23 00:39 Dose: 10 mg Documented By: DEBBIE Sodium Chloride (Ns) 1,000 mls @ 100 mls/hr IVCONT .Q10H [facility] Last Admin: 07/20/23 08:12 Dose: 100 mls/hr Documented By: YADI Ceftriaxone Sodium 2 gm/ (Sodium Chloride) 50 mls @ 100 mls/hr IV Q24H [facility] Methadone HCl (Methadone Hcl 20 Mg/2 Ml Oral.Conc) 155 mg PO DAILY [facility] Last Admin: 07/20/23 08:11 Dose: 155 mg Documented By: YADI Pharmacy Consult (Consult Rx Etoh Phenob Im/Po) 1 each MISCELLANE ONCE PRN; Protocol PRN Reason: Consult order Phenobarbital (Phenobarbital 15 Mg Tablet) 45 mg PO BID [facility]; Protocol Stop: 07/21/23 09:01 Last Admin: 07/20/23 08:10 Dose: 45 mg Documented By: YADI Phenobarbital (Phenobarbital 30 Mg Tablet) 30 mg PO BID [facility]; Protocol Stop: 07/22/23 21:01 Phenobarbital (Phenobarbital 30 Mg Tablet) 30 mg PO DAILY [facility]; Protocol Stop: 07/25/23 09:01 Phenobarbital (Phenobarbital 15 Mg Tablet) 15 mg PO DAILY [facility] Stop: 07/21/23 09:01 Last Admin: 07/20/23 08:11 Dose: 15 mg Documented By: YADI Sertraline HCl (Sertraline Hcl 50 Mg Tablet) 50 mg PO DAILY [facility] Last Admin: 07/20/23 08:09 Dose: 50 mg Documented By: YADI Sodium Chloride (0.9 % Sodium Chloride Flush 3 Ml Syringe) 3 ml IVFLUSH [facility] Last Admin: 07/20/23 08:11 Dose: 3 ml Documented By: YADI Labs 07/19/23 07:15 07/19/23 07:15 Assessment and Plan (1) Polysubstance abuse: Status: Acute (2) Alcohol withdrawal delirium: Status: Acute Plan 38-year-old female with history of polysubstance abuse presents today after missing several days of methadone and treating herself with IV heroin to avoid withdrawal. She also states she has been drinking 1 L of vodka for quite some time. Last drink midnight 03/14/2023 1.Polysubstance abuse - restart methadone at outpatient dosing - care team consult when medically appropriate 2.Alcohol abuse - not active withdrawal at this point given last drink within 24 hours; high risk given volume of alcohol consumed daily - CIWA scale 4-5 - tolerant of phenobarb protocol 3. UTI - urine culture sent await completion - empiric ceftriaxone - blood cultures x2 full code Lovenox patient will require 2 midnights of inpatient stay going forward to treat for alcohol withdrawal with phenobarb protocol. This cannot be achieved a lesser acute setting Time Spent With Patient Time: Total time managing care of this patient today ____ minutes. Quality Stroke Does the patient have a stroke diagnosis?: No VTE Prior VTE?: No VTE Risk Level:: Medical - moderate - high VTE Device Contraindication: Treatment Not Indicated VTE Drug Contraindication: N/A - Med Ordered
[2023-07-20 15:12] VITALS: BP 119/72; PULSE 77; RESP 20; TEMP 36.7; O2SAT 90
[2023-07-20 19:19] VITALS: BP 119/83; PULSE 82; RESP 20; TEMP 36.8; O2SAT 93
[2023-07-21] VITALS (7 sets, daily range): BP systolic 117–140; BP diastolic 57–84; PULSE 66–89; RESP 19–20; TEMP 36.1–37.8; O2SAT 91–96
--- NOTE | 2023-07-21 13:42 | HO.PM.IMPN ---
Subjective Subjective Date of Service: 07/21/23 Interval History: resting quietly. CIWA 6-7. Tolerant of protocol. No seizure activity Review of Systems denies chest pain Denies shortness of breath Denies nausea vomiting diarrhea Denies fever chills Physical Exam Vital Signs: Vital Signs: Last Vital Signs Temp 96.9 F 07/21/23 11:05 Pulse 76 07/21/23 11:05 Resp 20 07/21/23 11:05 BP 123/73 07/21/23 11:05 Pulse Ox 91 L 07/21/23 11:05 O2 Del Method Room Air 07/21/23 11:05 BMI result Body Mass Index 37.4 Const: Other: somnolent and arousable; more alert than yesterday Resp: Other: clear to auscultation bilaterally no rales rhonchi wheezes Cardio: Other: no S4; S1-S2;no S3 murmurs rubs or gallops GI: Other: soft nontender nondistended Neuro: Other: cranial nerves 2-12 grossly intact as tested. Motor is 5/5 all extremities. Sensation is intact. Cognition is appropriate Extrem: Other: no edema bilaterally Objective Data Active Medications Acetaminophen (Acetaminophen 325 Mg Tablet) 650 mg PO Q6H PRN PRN Reason: mild to moderate pain Last Admin: 07/21/23 08:22 Dose: 650 mg Documented By: YADI Enoxaparin Sodium (Enoxaparin Sodium 40 Mg/0.4 Ml Syringe) 40 mg SUBCUT Q24H [facility] Last Admin: 07/20/23 14:54 Dose: 40 mg Documented By: YADI Famotidine (Famotidine 20 Mg Tablet) 20 mg PO BID [facility] Last Admin: 07/21/23 08:21 Dose: 20 mg Documented By: YADI Gabapentin (Gabapentin 100 Mg Capsule) 100 mg PO DAILY [facility] Last Admin: 07/21/23 08:21 Dose: 100 mg Documented By: YADI Hydroxyzine HCl (Hydroxyzine Hcl 10 Mg Tablet) 10 mg PO Q6H PRN PRN Reason: anxiety/restlessness Last Admin: 07/21/23 08:21 Dose: 10 mg Documented By: YADI Ceftriaxone Sodium 2 gm/ (Sodium Chloride) 50 mls @ 100 mls/hr IV Q24H [facility] Last Infusion: 07/20/23 15:46 Dose: Infused Documented By: YADI Methadone HCl (Methadone Hcl 20 Mg/2 Ml Oral.Conc) 155 mg PO DAILY [facility] Last Admin: 07/21/23 08:22 Dose: 155 mg Documented By: YADI Pharmacy Consult (Consult Rx Etoh Phenob Im/Po) 1 each MISCELLANE ONCE PRN; Protocol PRN Reason: Consult order Phenobarbital (Phenobarbital 30 Mg Tablet) 30 mg PO BID [facility]; Protocol Stop: 07/22/23 21:01 Last Admin: 07/21/23 08:21 Dose: 30 mg Documented By: YADI Phenobarbital (Phenobarbital 30 Mg Tablet) 30 mg PO DAILY [facility]; Protocol Stop: 07/25/23 09:01 Sertraline HCl (Sertraline Hcl 50 Mg Tablet) 50 mg PO DAILY [facility] Last Admin: 07/21/23 08:21 Dose: 50 mg Documented By: YADI Sodium Chloride (0.9 % Sodium Chloride Flush 3 Ml Syringe) 3 ml IVFLUSH QSHIFT [facility] Last Admin: 07/21/23 08:22 Dose: 3 ml Documented By: YADI Labs 07/19/23 07:15 07/19/23 07:15 Microbiology Microbiology Results: Microbiology 07/19/23 13:46 Blood Culture - Preliminary Blood - Venous No growth after 24 hours. 07/19/23 13:46 Blood Culture - Preliminary Blood - Venous No growth after 24 hours. Assessment and Plan (1) Alcohol abuse: Status: Acute Plan 38-year-old female with history of polysubstance abuse presents today after missing several days of methadone and treating herself with IV heroin to avoid withdrawal. She also states she has been drinking 1 L of vodka for quite some time. Last drink midnight 03/14/2023 1.Polysubstance abuse - restart methadone at outpatient dosing - care team consult when medically appropriate 2.Alcohol abuse - not active withdrawal at this point given last drink within 24 hours; high risk given volume of alcohol consumed daily - CIWA scale 6-7 - tolerant of phenobarb protocol 3. UTI - urine culture sent await completion - empiric ceftriaxone - blood cultures x2 full code Lovenox patient will require ongoing hospitalization for phenobarb protocol secondary to alcohol withdrawal Time Spent With Patient Time: Total time managing care of this patient today ____ minutes. Quality Stroke Does the patient have a stroke diagnosis?: No VTE Prior VTE?: No VTE Risk Level:: Medical - moderate - high VTE Device Contraindication: Treatment Not Indicated VTE Drug Contraindication: N/A - Med Ordered
--- NOTE | 2023-07-21 16:43 | MHC.RECOVRN ---
Addendum entered by Kandace Lima RN 07/21/23 16:47: Findings reviewed with patients inpatient RN. Original Note: This magnetic tape typewriter operator met with patient, patient admitted for ETOH withdrawal. Pt reports stable on MTD. Pt currently reporting moderate headache, irritable, sensitive to light/noise, pt visibly diaphoretic. CIWA 13.
[2023-07-22] VITALS (7 sets, daily range): BP systolic 128–154; BP diastolic 68–87; PULSE 54–90; RESP 18–22; TEMP 36.3–37.6; O2SAT 93–96
--- NOTE | 2023-07-22 13:21 | HO.PM.IMPN ---
Subjective Subjective Date of Service: 07/22/23 Interval History: No seizure activity noted. CIWA at 6 this a.m. now with O2 requirement Review of Systems denies chest pain Denies shortness of breath Denies nausea vomiting diarrhea Denies fever chills Physical Exam Vital Signs: Vital Signs: Last Vital Signs Temp 98.5 F 07/22/23 11:39 Pulse 68 07/22/23 11:39 Resp 20 07/22/23 11:39 BP 128/78 07/22/23 11:39 Pulse Ox 95 07/22/23 11:39 O2 Del Method Nasal Cannula 07/22/23 11:39 O2 Flow Rate 4 07/22/23 11:39 BMI result Body Mass Index 37.4 Const: Other: somnolent and arousable; more alert than yesterday Resp: Other: Diminished at bases with coarse rhonchi throughout. Scattered expiratory wheezes Cardio: Other: no S4; S1-S2;no S3 murmurs rubs or gallops GI: Other: soft nontender nondistended Neuro: Other: cranial nerves 2-12 grossly intact as tested. Motor is 5/5 all extremities. Sensation is intact. Cognition is appropriate Extrem: Other: no edema bilaterally Objective Data Active Medications Acetaminophen (Acetaminophen 325 Mg Tablet) 650 mg PO Q6H PRN PRN Reason: mild to moderate pain Last Admin: 07/22/23 09:40 Dose: 650 mg Documented By: YADI Albuterol/Ipratropium (Albuterol/Iprat 2.5/0.5mg 3 Ml Ampul.Neb) 3 ml INHALE Q4H PRN PRN Reason: Wheezing Last Admin: 07/22/23 03:35 Dose: 3 ml Documented By: VAUGHN Enoxaparin Sodium (Enoxaparin Sodium 40 Mg/0.4 Ml Syringe) 40 mg SUBCUT Q24H [facility] Last Admin: 07/21/23 14:56 Dose: 40 mg Documented By: YADI Famotidine (Famotidine 20 Mg Tablet) 20 mg PO BID [facility] Last Admin: 07/22/23 09:40 Dose: 20 mg Documented By: YADI Gabapentin (Gabapentin 100 Mg Capsule) 100 mg PO DAILY [facility] Last Admin: 07/22/23 09:40 Dose: 100 mg Documented By: YADI Hydroxyzine HCl (Hydroxyzine Hcl 10 Mg Tablet) 10 mg PO Q6H PRN PRN Reason: anxiety/restlessness Last Admin: 07/22/23 09:39 Dose: 10 mg Documented By: YADI Ceftriaxone Sodium 2 gm/ (Sodium Chloride) 50 mls @ 100 mls/hr IV Q24H [facility] Last Infusion: 07/21/23 15:43 Dose: Infused Documented By: YADI Methadone HCl (Methadone Hcl 20 Mg/2 Ml Oral.Conc) 155 mg PO DAILY [facility] Last Admin: 07/22/23 09:40 Dose: 155 mg Documented By: YADI Pharmacy Consult (Consult Rx Etoh Phenob Im/Po) 1 each MISCELLANE ONCE PRN; Protocol PRN Reason: Consult order Phenobarbital (Phenobarbital 30 Mg Tablet) 30 mg PO BID [facility]; Protocol Stop: 07/22/23 21:01 Last Admin: 07/22/23 09:40 Dose: 30 mg Documented By: YADI Phenobarbital (Phenobarbital 30 Mg Tablet) 30 mg PO DAILY [facility]; Protocol Stop: 07/25/23 09:01 Sertraline HCl (Sertraline Hcl 50 Mg Tablet) 50 mg PO DAILY [facility] Last Admin: 07/22/23 09:40 Dose: 50 mg Documented By: YADI Sodium Chloride (0.9 % Sodium Chloride Flush 3 Ml Syringe) 3 ml IVFLUSH QSHIFT [facility] Last Admin: 07/22/23 09:40 Dose: 3 ml Documented By: YADI Labs 07/19/23 07:15 07/19/23 07:15 Microbiology Microbiology Results: Microbiology 07/19/23 13:46 Blood Culture - Preliminary Blood - Venous No growth after 48 hours. 07/19/23 13:46 Blood Culture - Preliminary Blood - Venous No growth after 48 hours. Assessment and Plan (1) Hypoxia: Status: Acute Plan 38-year-old female with history of polysubstance abuse presents today after missing several days of methadone and treating herself with IV heroin to avoid withdrawal. She also states she has been drinking 1 L of vodka for quite some time. Last drink midnight 03/14/2023 1. Hypoxia. .. Likely secondary to aspiration -check portable chest -start Zosyn -pulse dose Solu-Medrol 2.Polysubstance abuse - restart methadone at outpatient dosing - care team consult when medically appropriate 3.Alcohol abuse - not active withdrawal at this point given last drink within 24 hours; high risk given volume of alcohol consumed daily - CIWA scale 6-7 - tolerant of phenobarb protocol 4. UTI - urine culture sent await completion - empiric ceftriaxone - blood cultures x2 full code Lovenox patient will require ongoing hospitalization for phenobarb protocol secondary to alcohol withdrawal Time Spent With Patient Time: Total time managing care of this patient today ____ minutes. Quality Stroke Does the patient have a stroke diagnosis?: No VTE Prior VTE?: No VTE Risk Level:: Medical - moderate - high VTE Device Contraindication: Treatment Not Indicated VTE Drug Contraindication: N/A - Med Ordered
[2023-07-23] VITALS (7 sets, daily range): BP systolic 120–136; BP diastolic 60–82; PULSE 48–84; RESP 17–20; TEMP 36.2–36.5; O2SAT 94–99
--- NOTE | 2023-07-23 14:38 | MHC.RECOVRN ---
Attempted to meet with pt in 460 to follow up and provide support. Upon entering pts room, pt states I'm just feeling good enought to sleep. Pt allowed to rest. T/w available if needed.
--- NOTE | 2023-07-23 15:15 | MHC.CM.PN ---
EMR reviewed and per MD rounds, pt is not medically cleared for D/C today due to needing continued treatment for ETOH W/D. CM will continue to follow.
--- NOTE | 2023-07-23 15:26 | P.PNIM_ITS ---
Subjective Subjective Date of Service: 07/23/23 Interval History: JESSEWA remains 6-8. Given additional phenobarb IM today for increased withdrawal symptoms. Good affect noted Review of Systems denies chest pain Denies shortness of breath Denies nausea vomiting diarrhea Denies fever chills Physical Exam 2 Vital Signs: Vital Signs: Last Vital Signs Temp 97.7 F 07/23/23 11:48 Pulse 48 L 07/23/23 11:48 Resp 20 07/23/23 11:48 BP 120/63 07/23/23 11:48 Pulse Ox 94 07/23/23 11:48 O2 Del Method Nasal Cannula 07/23/23 11:48 O2 Flow Rate 4 07/23/23 11:48 BMI result Body Mass Index 37.4 Const: Other: somnolent and arousable; more alert than yesterday Resp: Other: Diminished at bases with coarse rhonchi throughout. Scattered expiratory wheezes Cardio: Other: no S4; S1-S2;no S3 murmurs rubs or gallops GI: Other: soft nontender nondistended Neuro: Other: cranial nerves 2-12 grossly intact as tested. Motor is 5/5 all extremities. Sensation is intact. Cognition is appropriate Extrem: Other: no edema bilaterally Objective Data Active Medications Acetaminophen (Acetaminophen 325 Mg Tablet) 650 mg PO Q6H PRN PRN Reason: mild to moderate pain Last Admin: 07/23/23 12:26 Dose: 650 mg Documented By: JESSICA Albuterol/Ipratropium (Albuterol/Iprat 2.5/0.5mg 3 Ml Ampul.Neb) 3 ml INHALE Q4H PRN PRN Reason: Wheezing Last Admin: 07/22/23 03:35 Dose: 3 ml Documented By: VAUGHN Enoxaparin Sodium (Enoxaparin Sodium 40 Mg/0.4 Ml Syringe) 40 mg SUBCUT Q24H [facility] Last Admin: 07/22/23 17:07 Dose: 40 mg Documented By: GRETCHEN Famotidine (Famotidine 20 Mg Tablet) 20 mg PO BID [facility] Last Admin: 07/23/23 07:28 Dose: 20 mg Documented By: JESSICA Gabapentin (Gabapentin 100 Mg Capsule) 100 mg PO DAILY [facility] Last Admin: 07/23/23 07:28 Dose: 100 mg Documented By: JESSICA Hydroxyzine HCl (Hydroxyzine Hcl 10 Mg Tablet) 10 mg PO Q6H PRN PRN Reason: anxiety/restlessness Last Admin: 07/23/23 02:54 Dose: 10 mg Documented By: DAMIAN Piperacillin Sod/Tazobactam (Sod 4.5 gm/ Sodium Chloride) 100 mls @ 200 mls/hr IV Q6H [facility] Last Infusion: 07/23/23 13:44 Dose: Infused Documented By: JESSICA Lorazepam (Lorazepam 2 Mg/Ml Vial) 1 mg IVPUSH Q4H PRN PRN Reason: Anxiety Last Admin: 07/23/23 12:26 Dose: 1 mg Documented By: JESSICA Methadone HCl (Methadone Hcl 20 Mg/2 Ml Oral.Conc) 155 mg PO DAILY [facility] Last Admin: 07/23/23 07:26 Dose: 155 mg Documented By: JESSICA Methylprednisolone Sodium Succinate (Methylprednisolone Sod Succ 125 Mg/2 Ml Vial) 60 mg IVPUSH Q6H [facility] Last Admin: 07/23/23 14:07 Dose: 60 mg Documented By: JESSICA Pharmacy Consult (Consult Rx Etoh Phenob Im/Po) 1 each MISCELLANE ONCE PRN; Protocol PRN Reason: Consult order Phenobarbital (Phenobarbital 30 Mg Tablet) 30 mg PO DAILY [facility]; Protocol Stop: 07/25/23 09:01 Sertraline HCl (Sertraline Hcl 50 Mg Tablet) 50 mg PO DAILY [facility] Last Admin: 07/23/23 07:28 Dose: 50 mg Documented By: JESSICA Sodium Chloride (0.9 % Sodium Chloride Flush 3 Ml Syringe) 3 ml IVFLUSH QSHIFT [facility] Last Admin: 07/23/23 07:25 Dose: 3 ml Documented By: JESSICA Labs 07/19/23 07:15 07/19/23 07:15 Assessment and Plan (1) Alcohol withdrawal delirium: Status: Acute Plan 38-year-old female with history of polysubstance abuse presents today after missing several days of methadone and treating herself with IV heroin to avoid withdrawal. She also states she has been drinking 1 L of vodka for quite some time. Last drink midnight 03/14/2023 1. Hypoxia. .. Likely secondary to aspiration -chest x-ray negative ... DC Zosyn -pulse dose Solu-Medrol 2.Polysubstance abuse - restart methadone at outpatient dosing - care team consult when medically appropriate 3.Alcohol abuse - not active withdrawal at this point given last drink within 24 hours; high risk given volume of alcohol consumed daily - CIWA scale 6-7 - tolerant of phenobarb protocol 4. UTI - urine culture sent await completion - empiric ceftriaxone - blood cultures x2 full code Lovenox patient will require ongoing hospitalization for phenobarb protocol secondary to alcohol withdrawal Time Spent With Patient Time: Total time managing care of this patient today ____ minutes. Quality Stroke Does the patient have a stroke diagnosis?: No VTE Prior VTE?: No VTE Risk Level:: Medical - moderate - high VTE Device Contraindication: Treatment Not Indicated VTE Drug Contraindication: N/A - Med Ordered
[2023-07-23] MEDS: Albuterol/Iprat 2.5/0.5MG 3 ML AMPUL.NEB INHALE (19:32)
[2023-07-23] MEDS: methylPREDNISolone Sod Succ 125 MG/2 ML VIAL 60 MG IVPUSH (20:19)
[2023-07-23] MEDS: LORazepam 2 MG/ML VIAL 1 MG IVPUSH (20:20)
[2023-07-23] MEDS: Famotidine 20 MG TABLET PO (20:20)
[2023-07-24] MEDS: methylPREDNISolone Sod Succ 125 MG/2 ML VIAL 60 MG IVPUSH (01:35)
[2023-07-24] MEDS: LORazepam 2 MG/ML VIAL 1 MG IVPUSH ×2 (01:35→09:28)
[2023-07-24 03:38] VITALS: BP 138/67; PULSE 68; RESP 19; TEMP 36.3; O2SAT 96
[2023-07-24 07:01] VITALS: BP 146/83; PULSE 57; RESP 20; TEMP 36.6; O2SAT 93
[2023-07-24] MEDS: methADONE HCl 20 MG/2 ML ORAL.CONC 155 MG PO (08:47)
[2023-07-24] MEDS: Sertraline HCL 50 MG TABLET PO (08:49)
[2023-07-24] MEDS: PHENobarbitaL 30 MG TABLET PO (08:50)
[2023-07-24] MEDS: Famotidine 20 MG TABLET PO (08:50)
[2023-07-24] MEDS: Gabapentin 100 MG CAPSULE PO (08:50)
[2023-07-24] MEDS: predniSONE 20 MG TABLET 40 MG PO (10:15)
[2023-07-24 10:53] VITALS: BP 151/86; PULSE 71; RESP 20; TEMP 37.1; O2SAT 96
--- NOTE | 2023-07-24 11:22 | MHC.RECOVRN ---
Met with pt in 460 to follow up and provide support. Pt laying in bed, awake, alert, easily engages in conversation. Discussed pts dc plan, pt interested in sober living. Pt educated on process to get to that point. Pt is not interested in CSS or TSS at this time. Pt states [facility] and hopefully go to my mom[facility]. Pt provided with written recovery resources, CSS/TSS information, as well as t/w contact information if needed. Pt denies questions or concerns at this time. CM aware.
--- NOTE | 2023-07-24 11:52 | PC.NURSE ---
This AM, this nurse administered Methadone to pt. Medication was not scanned. There is a discrepancy in the pyxis about Methadone count. Metal Sander notified.
[2023-07-24] MEDS: hydrOXYzine HCL 10 MG TABLET PO (12:41)
[2023-07-24] MEDS: PHENobarbitaL sodium 130 MG/ML VIAL IM (13:01)
[2023-07-24 15:35] VITALS: BP 156/74; PULSE 59; RESP 20; TEMP 36.1; O2SAT 95
--- NOTE | 2023-07-24 15:46 | MHC.CM.PN ---
PER INSURANCE HEALTHCARE CONSULTANT, PT CURRENTLY HOMELESS AND WISHES TO DC TO [facility] IN HOPES OF EVENTUALLY MOVING BACK IN WITH HER MOTHER. THIS CM CALLED MULTIPLE LOCAL SHELTERS, ONLY AVAILABLE BED FOUND IS WITH [facility] ON [facility] IN [place] [phone]. THEY WILL REQUIRE A PHONE CALL AND DISCUSSION WITH [facility] RN ON DAY OF DC (9:30AM IS BEST TIME TO CALL) AND CANNOT ACCEPT PTS ON 02. ATTEMPTED TO DISCUSS WITH PT, BUT PT RESTING AND DECLINES TO DISCUSS. PT NOT MEDICALLY CLEARED FOR DC AT THIS TIME. CM WILL CONTINUE TO FOLLOW.
--- NOTE | 2023-07-24 16:03 | P.PNIM_ITS ---
Subjective Subjective Date of Service: 07/24/23 Interval History: anxious, tremulous Review of Systems Review of Systems: Yes all other systems are reviewed and are negative Physical Exam 2 Vital Signs: Vital Signs: Last Vital Signs Temp 96.9 F 07/24/23 15:35 Pulse 59 07/24/23 15:35 Resp 20 07/24/23 15:35 BP 156/74 H 07/24/23 15:35 Pulse Ox 95 07/24/23 15:35 O2 Del Method Nasal Cannula 07/24/23 15:35 O2 Flow Rate 3 07/24/23 10:53 BMI result Body Mass Index 37.4 Gen: in no acute distress HEENT: sclera anicteric, moist mucus membranes Neck: supple Lungs: scattered expiratory wheezes Heart: regular rate and rhythm, no murmurs Abd: soft, non-tender, non-distended Ext: no edema Skin: warm/well-perfused Neuro: alert and oriented x3, no focal findings Psych: restricted affect Objective Data Active Medications Acetaminophen (Acetaminophen 325 Mg Tablet) 650 mg PO Q6H PRN PRN Reason: mild to moderate pain Last Admin: 07/23/23 12:26 Dose: 650 mg Documented By: JESSICA Albuterol/Ipratropium (Albuterol/Iprat 2.5/0.5mg 3 Ml Ampul.Neb) 3 ml INHALE Q4H PRN PRN Reason: Wheezing Last Admin: 07/23/23 19:32 Dose: 3 ml Documented By: JAZMINE Enoxaparin Sodium (Enoxaparin Sodium 40 Mg/0.4 Ml Syringe) 40 mg SUBCUT Q24H [facility] Last Admin: 07/23/23 16:15 Dose: 40 mg Documented By: JESSICA Famotidine (Famotidine 20 Mg Tablet) 20 mg PO BID [facility] Last Admin: 07/24/23 08:50 Dose: 20 mg Documented By: DANG Gabapentin (Gabapentin 100 Mg Capsule) 100 mg PO DAILY [facility] Last Admin: 07/24/23 08:50 Dose: 100 mg Documented By: DANG Hydroxyzine HCl (Hydroxyzine Hcl 10 Mg Tablet) 10 mg PO Q6H PRN PRN Reason: anxiety/restlessness Last Admin: 07/24/23 12:41 Dose: 10 mg Documented By: DANG Lorazepam (Lorazepam 2 Mg/Ml Vial) 1 mg IVPUSH Q4H PRN PRN Reason: Anxiety Last Admin: 07/24/23 09:28 Dose: 1 mg Documented By: DANG Methadone HCl (Methadone Hcl 20 Mg/2 Ml Oral.Conc) 155 mg PO DAILY [facility] Last Admin: 07/24/23 08:47 Dose: 155 mg Documented By: DANG Pharmacy Consult (Consult Rx Etoh Phenob Im/Po) 1 each MISCELLANE ONCE PRN; Protocol PRN Reason: Consult order Phenobarbital (Phenobarbital 30 Mg Tablet) 30 mg PO DAILY [facility]; Protocol Stop: 07/25/23 09:01 Last Admin: 07/24/23 08:50 Dose: 30 mg Documented By: DANG Prednisone (Prednisone 20 Mg Tablet) 40 mg PO DAILY [facility] Last Admin: 07/24/23 10:15 Dose: 40 mg Documented By: DANG Sertraline HCl (Sertraline Hcl 50 Mg Tablet) 50 mg PO DAILY [facility] Last Admin: 07/24/23 08:49 Dose: 50 mg Documented By: DANG Sodium Chloride (0.9 % Sodium Chloride Flush 3 Ml Syringe) 3 ml IVFLUSH QSHIFT [facility] Last Admin: 07/24/23 08:47 Dose: 3 ml Documented By: DANG Labs 07/19/23 07:15 07/19/23 07:15 Microbiology Microbiology Results: Microbiology 07/19/23 13:46 Blood Culture - Final Blood - Venous No growth after 5 days. 07/19/23 13:46 Blood Culture - Final Blood - Venous No growth after 5 days. Assessment and Plan (1) Alcohol withdrawal delirium: Status: Acute Plan d6 38yo F with OUD on methadone , AUD missed several days of methadone and used cocaine and heroin to avoid wtihdrawal admitted for alcohol withdrawal + hypoxia from aspiration/asthma exacerbation EtOH withdrawal - phenobarbital taper, give extra dose today - thiamine, folate acute hypoxic respiratory failure due to aspiration + asthma exacerbation - got ceftriaxone 07/20-07/22 then pip-angelo 07/22-07/23, no evidence for pneumonia - change IV methylprednisolone to PO prednisone - prn nebs polysubstance abuse - methadone restarted - Addiction Medicine consultation - screen for HBV/HCV/HIV UTI - UCx not sent, completed ABX as above mood disorder - sertraline, hydroxyzine VTE ppx - LMWH dispo - TBD In my clinical judgment, the patient requires continued inpatient hospitalization for the following reasons: inpt mgmt of EtOH withdrawal Time Spent With Patient Time: Total time managing care of this patient today ___35_ minutes. Quality Stroke Does the patient have a stroke diagnosis?: No VTE Prior VTE?: No VTE Risk Level:: Medical - moderate - high VTE Device Contraindication: Treatment Not Indicated VTE Drug Contraindication: N/A - Med Ordered
[2023-07-24] MEDS: Enoxaparin Sodium 40 MG/0.4 ML SYRINGE SUBCUT (16:07)
[2023-07-24] MEDS: Acetaminophen 325 MG TABLET 650 MG PO (16:11)
[2023-07-24] MEDS: Thiamine HCL 100 MG TABLET PO (16:15)
[2023-07-24] MEDS: Folic Acid 1 MG TABLET PO (16:15)
--- NOTE | 2023-07-24 16:31 | P.EN_ITS ---
Event Note Date of Service: 07/24/23 Event Note: Addiction consult placed Patient met with saddle and harness maker, declined referrals, but accepting of resources. No follow up indicated at this time. Time Spent With Patient Time: Total time managing care of this patient today ____ minutes.
[2023-07-24 19:52] VITALS: BP 174/79; PULSE 60; RESP 20; TEMP 36.3; O2SAT 93
[2023-07-25] VITALS (7 sets, daily range): BP systolic 123–168; BP diastolic 64–86; PULSE 55–97; RESP 18–20; TEMP 36.2–36.9; O2SAT 90–97
[2023-07-25] MEDS: hydrOXYzine HCL 10 MG TABLET PO ×2 (00:13→17:47)
[2023-07-25 06:55] LABS: Hematocrit 37.4 % (37.0-47.0); Hemoglobin 11.7 g/dl (12.0-16.0); Mean Corpuscular HGB Conc 31.3 g/dl (31.0-35.0); Mean Corpuscular Hemoglobin 26.6 pg (27.0-33.0); Mean Platelet Volume 9.5 fL (9.4-12.3); Platelet Count 254 X10*3/uL (160-400); Red Cell Distribution Width 14.6 % (11.0-16.0); White Blood Count 9.7 X10*3/uL (4.8-10.8)
[2023-07-25 07:43] LABS: HBS Num1 > 1000.00 mIU/mL (0-7.99); HBc Num1 0.14 S/CO (0.00-0.79); HBsAGNum1 0.32 S/CO (0.00-0.99); HIV AB/AG Nonreactive (Nonreactive); HIV Num 1 0.06 S/CO (0.00-0.99); Hepatitis B Core Antibody Nonreactive (Nonreactive); Hepatitis B Surface Antigen Negative (Negative); ~Hepatitis B Surface Antibody REACTIVE (Nonreactive); ~Hepatitis C Antibody Reactive (Nonreactive)
[2023-07-25 07:44] LABS: Alanine Aminotransferase 61 U/L (0-31); Albumin Level 3.2 g/dL (3.5-5.0); Alkaline Phosphatase 72 U/L (39-117); Anion Gap 15 (12-20); Aspartate Amino Transferase 55 U/L (5-31); Bilirubin Total 0.1 mg/dL (0.0-1.0); Blood Urea Nitrogen 17 mg/dL (9-16); Calcium 8.5 mg/dL (8.4-10.2); Carbon Dioxide 25 mmol/L (22-29); Chloride 106 mmol/L (96-108); Creatinine Clr Calc Pharmacy 147.5; Estimated Glomerular Filt Rate > 60; Glucose Random 69 mg/dL (60-115); Magnesium 2.1 mg/dL (1.6-2.6); Potassium 3.8 mmol/L (3.3-5.1); Sodium 142 mmol/L (135-145); Total Protein 6.6 g/dL (6.5-8.0)
[2023-07-25] MEDS: methADONE HCl 20 MG/2 ML ORAL.CONC 155 MG PO (08:50)
[2023-07-25] MEDS: Folic Acid 1 MG TABLET PO (08:50)
[2023-07-25] MEDS: Thiamine HCL 100 MG TABLET PO (08:50)
[2023-07-25] MEDS: predniSONE 20 MG TABLET 40 MG PO (08:50)
[2023-07-25] MEDS: PHENobarbitaL 30 MG TABLET PO (08:51)
[2023-07-25] MEDS: Famotidine 20 MG TABLET PO ×2 (08:51→20:29)
[2023-07-25] MEDS: Gabapentin 100 MG CAPSULE PO (08:51)
[2023-07-25] MEDS: Sertraline HCL 50 MG TABLET PO (08:51)
--- NOTE | 2023-07-25 10:50 | MHC.CM.PN ---
Addendum entered by Trena Arevalo RN 07/25/23 15:41: This CM followed up with patient after meeting with kennel manager dog track and declining CSS placement. Patient now reporting to the CM she does not wish to go to CSS, does not wish to go to a group home, and cannot identify any other options. This CM offered assistance again with group home placement. Patient declined and understands that she will leave hospital upon medical clearance/discharge, potentially tomorrow. Patient did not wish to engage in further conversation, eyes closed and grunting. This CM advised pt to ask for CM for any further assistance. [facility] pamphlet at bedside. Original Note: EMR reviewed. Per MD rounds patient not medically cleared for DC at this time, potential DC tomorrow. This CM met with patient at bedside to discuss homeless shelters, as previously requested. Patient now declines and is requesting to speak with sample case porter regarding treatment/placement options with a goal of eventual sober living house. Request sent to kennel manager dog track via [email or web address] to meet with patient. Also left pamphlet with group home options at bedside and offered assistance should patient change her mind. Patient states mother can transport to treatment facility if needed. CM will continue to follow.
--- NOTE | 2023-07-25 13:59 | HO.PM.IMPN ---
Subjective Subjective Date of Service: 07/25/23 Interval History: wheezing improved weaned off O2 Review of Systems Review of Systems: Yes all other systems are reviewed and are negative Physical Exam Vital Signs: Vital Signs: Last Vital Signs Temp 97.9 F 07/25/23 11:52 Pulse 67 07/25/23 11:52 Resp 18 07/25/23 11:52 BP 123/65 07/25/23 11:52 Pulse Ox 92 07/25/23 11:52 O2 Del Method Room Air 07/25/23 11:52 O2 Flow Rate 2 07/25/23 00:00 BMI result Body Mass Index 37.4 Gen: in no acute distress HEENT: sclera anicteric, moist mucus membranes Neck: supple Lungs: scattered expiratory wheezes Heart: regular rate and rhythm, no murmurs Abd: soft, non-tender, non-distended Ext: no edema Skin: warm/well-perfused Neuro: alert and oriented x3, no focal findings Psych: restricted affect Objective Data Active Medications Acetaminophen (Acetaminophen 325 Mg Tablet) 650 mg PO Q6H PRN PRN Reason: mild to moderate pain Last Admin: 07/24/23 16:11 Dose: 650 mg Documented By: DANG Albuterol/Ipratropium (Albuterol/Iprat 2.5/0.5mg 3 Ml Ampul.Neb) 3 ml INHALE Q4H PRN PRN Reason: Wheezing Last Admin: 07/23/23 19:32 Dose: 3 ml Documented By: JAZMINE Enoxaparin Sodium (Enoxaparin Sodium 40 Mg/0.4 Ml Syringe) 40 mg SUBCUT Q24H [facility] Last Admin: 07/24/23 16:07 Dose: 40 mg Documented By: DANG Famotidine (Famotidine 20 Mg Tablet) 20 mg PO BID [facility] Last Admin: 07/25/23 08:51 Dose: 20 mg Documented By: SHERRY Folic Acid (Folic Acid 1 Mg Tablet) 1 mg PO DAILY [facility] Last Admin: 07/25/23 08:50 Dose: 1 mg Documented By: SHERRY Gabapentin (Gabapentin 100 Mg Capsule) 100 mg PO DAILY [facility] Last Admin: 07/25/23 08:51 Dose: 100 mg Documented By: SHERRY Hydroxyzine HCl (Hydroxyzine Hcl 10 Mg Tablet) 10 mg PO Q6H PRN PRN Reason: anxiety/restlessness Last Admin: 07/25/23 00:13 Dose: 10 mg Documented By: CHARLIE Methadone HCl (Methadone Hcl 20 Mg/2 Ml Oral.Conc) 155 mg PO DAILY [facility] Last Admin: 07/25/23 08:50 Dose: 155 mg Documented By: SHERRY Pharmacy Consult (Consult Rx Etoh Phenob Im/Po) 1 each MISCELLANE ONCE PRN; Protocol PRN Reason: Consult order Prednisone (Prednisone 20 Mg Tablet) 40 mg PO DAILY [facility] Last Admin: 07/25/23 08:50 Dose: 40 mg Documented By: SHERRY Sertraline HCl (Sertraline Hcl 50 Mg Tablet) 50 mg PO DAILY [facility] Last Admin: 07/25/23 08:51 Dose: 50 mg Documented By: SHERRY Sodium Chloride (0.9 % Sodium Chloride Flush 3 Ml Syringe) 3 ml IVFLUSH QSHIFT [facility] Last Admin: 07/25/23 08:50 Dose: 3 ml Documented By: SHERRY Thiamine HCl (Thiamine Hcl 100 Mg Tablet) 100 mg PO DAILY [facility] Last Admin: 07/25/23 08:50 Dose: 100 mg Documented By: SHERRY Labs 07/25/23 06:08 07/25/23 06:08 Labs: Laboratory Results - last 24 hr 07/25/23 07/25/23 05:50 06:08 MCV 85.0 MCH 26.6 L MCHC 31.3 RDW 14.6 Plt Count 254 MPV 9.5 Absolute Nucleated RBC 0.000 Nucleated RBC % (auto) 0.0 Anion Gap 15 Estim Creat Clear Calc 147.5 Estimated GFR > 60 Random Glucose 69 Calcium 8.5 D Magnesium 2.1 Total Bilirubin 0.1 AST 55 H ALT 61 H Alkaline Phosphatase 72 Total Protein 6.6 Albumin 3.2 L Hep Bs Antigen Negative Hep Bs Antibody REACTIVE Hep B Core Total Ab Nonreactive Hepatitis C Ab (EIA) Reactive H HIV 1&2 Ab/P24 Ag 4thGn Nonreactive Microbiology Microbiology Results: Microbiology 07/19/23 13:46 Blood Culture - Final Blood - Venous No growth after 5 days. 07/19/23 13:46 Blood Culture - Final Blood - Venous No growth after 5 days. Assessment and Plan (1) Alcohol withdrawal delirium: Status: Acute Plan d7 38yo F with OUD on methadone , AUD missed several days of methadone and used cocaine and heroin to avoid wtihdrawal admitted for alcohol withdrawal + hypoxia from aspiration/asthma exacerbation EtOH withdrawal - phenobarbital taper - thiamine, folate acute hypoxic respiratory failure due to aspiration + asthma exacerbation - got ceftriaxone 07/20-07/22 then pip-angelo 07/22-07/23, no evidence for pneumonia - changed IV methylprednisolone to PO prednisone, taper upon discharge - prn nebs polysubstance abuse - methadone restarted - Addiction Medicine consulted, pt declined services HCV Ab+ - viral load pending. HBV immune, HIV negative UTI - UCx not sent, completed ABX as above mood disorder - sertraline, hydroxyzine VTE ppx - LMWH dispo - anticipate home tomorrow In my clinical judgment, the patient requires continued inpatient hospitalization for the following reasons: inpt mgmt of EtOH withdrawal Time Spent With Patient Time: Total time managing care of this patient today ____ minutes. Quality Stroke Does the patient have a stroke diagnosis?: No VTE Prior VTE?: No VTE Risk Level:: Medical - moderate - high VTE Device Contraindication: Treatment Not Indicated VTE Drug Contraindication: N/A - Med Ordered
--- NOTE | 2023-07-25 15:24 | MHC.RECOVRN ---
This underwriter met with patient to discuss addiction/recovery supports; CM had reached out to this underwriter as pt expressed interest in treatment options to CM. This underwriter entered patients room, introduced self, pt not engaged in conversation, no eye contact, pt grunted, did not verbalize. This underwriter followed up with CM above findings, reviewed that if patient interested referral to [facility] could be placed by Addiction/Recovery team, pt to d/c tomorrow, pt would then follow up with CSS referral from the community. However, pts do not remain admitted at hospital while waiting for [facility] beds- CSS beds often full due to high demand.
[2023-07-25] MEDS: Enoxaparin Sodium 40 MG/0.4 ML SYRINGE SUBCUT (17:41)
[2023-07-25] MEDS: Acetaminophen 325 MG TABLET 650 MG PO (17:44)
[2023-07-26 02:54] VITALS: BP 123/72; PULSE 58; RESP 16; TEMP 36.7; O2SAT 93
[2023-07-26 08:00] VITALS: BP 142/95; PULSE 84; RESP 18; TEMP 36.1; O2SAT 94
[2023-07-26] MEDS: methADONE HCl 20 MG/2 ML ORAL.CONC 155 MG PO (08:50)
[2023-07-26] MEDS: Sertraline HCL 50 MG TABLET PO (08:52)
[2023-07-26] MEDS: Famotidine 20 MG TABLET PO (08:52)
[2023-07-26] MEDS: Thiamine HCL 100 MG TABLET PO (08:52)
[2023-07-26] MEDS: Gabapentin 100 MG CAPSULE PO (08:52)
[2023-07-26] MEDS: predniSONE 20 MG TABLET 40 MG PO (08:52)
[2023-07-26] MEDS: hydrOXYzine HCL 10 MG TABLET PO (08:54)
--- NOTE | 2023-07-26 09:40 | PM.DS ---
DS: Providers Provider Date of Service: 07/26/23 Date of admission: 07/19/23 12:59 Date of discharge: 07/26/23 Primary care physician: Aneudy Soni MD Consults: 07/19/23 06:54 Consult to Care Team Stat Comment: Reason for consultation: Requesting detox from crack, heroin, and alcohol. 07/24/23 08:57 Addiction Medicine Routine Consulting Provider: Addiction Covering Reason for consultation: AUD OUD DS: Diagnosis Discharge Diagnosis (1) Alcohol withdrawal delirium: Status: Acute (2) Hypoxia: Status: Acute (3) Alcohol abuse: Status: Acute (4) Methadone maintenance therapy patient: Status: Acute (5) Mild intermittent asthma with (acute) exacerbation: Status: Acute (6) Polysubstance abuse: Status: Acute DS: Summary Hospital Course Hospital Course: from admission H+P, 07/19/23, by hospitalist Chace Veronica DO: 38-year-old female with a history of polysubstance abuse receiving methadone from [facility] presents today with what she describes as methadone withdrawal. She states she has also been drinking 1 L of vodka daily for awhile . She states her last drink was midnight. She states she was using heroin and cocaine to combat her methadone withdrawal. She was not taking her methadone as she states she was kicked out of [facility] not RO program and now wishes detox. In the emergency room, she did not exhibit myron alcohol withdrawal but given the amounts will be admitted on CIWA protocol and methadone will be restarted. Mother is at bedside and questions were answered 38yo F with OUD on methadone, AUD, and asthma who missed several days of methadone and used cocaine and heroin to avoid withdrawal. She was admitted to the [facility] for alcohol withdrawal + hypoxia from asthma exacerbation. Hospital course by problem: EtOH withdrawal - Developed alcohol withdrawal signs and symptoms. Treated successfully with phenobarbital taper. Given thiamine and folate. acute hypoxic respiratory failure due to aspiration + asthma exacerbation - Got ceftriaxone 07/20-07/22 then pip-angelo 07/22-07/23 but no evidence of pneumonia, so antibiotics discontinued. Ultimately hypoxia attributed to asthma. Treated with IV methylprednisolone to PO prednisone; prescribed taper upon discharge. Given nebulized bronchodilators as well; prescribed albuterol inhaler on discharge. polysubstance abuse [heroin, cocaine, EtOH] - Methadone restarted as per home dose, 155 mg/d through [facility]. Addiction Medicine and Recovery Team consulted but pt declined services or sober living house placement. HCV Ab+ - Previously treated in 2010 but at risk of reinfection given substance abuse. Viral load from 07/25/23 draw and pending. HBV immune, HIV negative She declined [facility] bed upon discharge and was discharged to the care of her mother. Time Spent with Patient Time attestation: Total time managing care of this patient today _40___ minutes. Discharge coordination time: Greater than 30 minutes Quality: Safe Use of Opioids Does Pt have an Active Cancer Diagnosis on the Problem List?: No Quality: Stroke Does the patient have a stroke diagnosis?: No Physical Exam Vital Signs: Vital Signs: Last Vital Signs Temp 97.0 F 07/26/23 08:00 Pulse 84 07/26/23 08:00 Resp 18 07/26/23 08:00 BP 142/95 H 07/26/23 08:00 Pulse Ox 94 07/26/23 08:00 O2 Del Method Room Air 07/26/23 08:00 O2 Flow Rate 2 07/25/23 00:00 BMI result Body Mass Index 37.4 Gen: in no acute distress HEENT: sclera anicteric, moist mucus membranes Neck: supple Lungs: clear to auscultation bilaterally Heart: regular rate and rhythm, no murmurs Abd: soft, non-tender, non-distended Ext: no edema Skin: warm/well-perfused Neuro: alert and oriented x3, no focal findings Psych: appropriate affect DS: Data Data Completed and Pending Completed studies during hospitalization [Text1]: Laboratory Results WBC 9.7 X10*3/uL (4.8-10.8) 07/25/23 06:08 RBC 4.40 X10*6/uL (4.20-5.50) 07/25/23 06:08 Hgb 11.7 g/dl (12.0-16.0) L 07/25/23 06:08 Hct 37.4 % (37.0-47.0) 07/25/23 06:08 MCV 85.0 fL (80.0-98.0) 07/25/23 06:08 MCH 26.6 pg (27.0-33.0) L 07/25/23 06:08 MCHC 31.3 g/dl (31.0-35.0) 07/25/23 06:08 RDW 14.6 % (11.0-16.0) 07/25/23 06:08 Plt Count 254 X10*3/uL (160-400) 07/25/23 06:08 MPV 9.5 fL (9.4-12.3) 07/25/23 06:08 Immature Gran % (Auto) 0.3 % (0.0-0.4) 07/19/23 07:15 Neut % (Auto) 70.5 % (45-73) 07/19/23 07:15 Lymph % (Auto) 18.1 % (20-40) L 07/19/23 07:15 Garza % (Auto) 10.4 % (2-11) 07/19/23 07:15 Eos % (Auto) 0.3 % (0-4) 07/19/23 07:15 Baso % (Auto) 0.4 % (0-2) 07/19/23 07:15 Lymph # (Auto) 1.6 X10*3/uL (1.2-4.9) 07/19/23 07:15 Garza # (Auto) 0.9 X10*3/uL (0.1-1.2) 07/19/23 07:15 Eos # (Auto) 0.0 X10*3/uL (0.0-0.4) 07/19/23 07:15 Baso # (Auto) 0.0 X10*3/uL (0.0-0.2) 07/19/23 07:15 Abs Immat Gran (auto) 0.03 X10*3/uL (0.00-0.03) 07/19/23 07:15 Absolute Neuts (auto) 6.4 x10*3/uL (2.0-8.3) 07/19/23 07:15 Absolute Nucleated RBC 0.000 X10*3/uL (0.0-0.012) 07/25/23 06:08 Nucleated RBC % (auto) 0.0 /100WBC (0.0-0.2) 07/25/23 06:08 Sodium 142 mmol/L (135-145) 07/25/23 06:08 Potassium 3.8 mmol/L (3.3-5.1) 07/25/23 06:08 Chloride 106 mmol/L (96-108) 07/25/23 06:08 Carbon Dioxide 25 mmol/L (22-29) 07/25/23 06:08 Anion Gap 15 (12-20) 07/25/23 06:08 BUN 17 mg/dL (9-16) H 07/25/23 06:08 Creatinine 0.64 mg/dL (0.5-1.4) 07/25/23 06:08 Estim Creat Clear Calc 147.5 07/25/23 06:08 Estimated GFR > 60 07/25/23 06:08 Random Glucose 69 mg/dL (60-115) 07/25/23 06:08 Calcium 8.5 mg/dL (8.4-10.2) D 07/25/23 06:08 Magnesium 2.1 mg/dL (1.6-2.6) 07/25/23 06:08 Total Bilirubin 0.1 mg/dL (0.0-1.0) 07/25/23 06:08 AST 55 U/L (5-31) H 07/25/23 06:08 ALT 61 U/L (0-31) H 07/25/23 06:08 Alkaline Phosphatase 72 U/L (39-117) 07/25/23 06:08 Total Protein 6.6 g/dL (6.5-8.0) 07/25/23 06:08 Albumin 3.2 g/dL (3.5-5.0) L 07/25/23 06:08 Urine Color Dark Yellow 07/19/23 10:15 Urine Appearance Cloudy 07/19/23 10:15 Urine pH 5.5 (5.0-9.0) 07/19/23 10:15 Ur Specific [place] >= 1.030 (1.005-1.025) H 07/19/23 10:15 Urine Protein 30 (1+) mg/dL (Neg-Trace) H 07/19/23 10:15 Urine Glucose (UA) Negative mg/dL (Negative) 07/19/23 10:15 Urine Ketones Negative mg/dL (Negative) 07/19/23 10:15 Urine Blood Trace (Negative) H 07/19/23 10:15 Urine Nitrite Negative (Negative) 07/19/23 10:15 Ur Leukocyte Esterase Moderate (2+) (Negative) H 07/19/23 10:15 Urine RBC 3-5 /HPF (0-2) H 07/19/23 10:15 Urine WBC >50 /HPF (0-5) H 07/19/23 10:15 Ur Squamous Epith Cells 6-10 /HPF (0-2) 07/19/23 10:15 Urine Bacteria 2+ (None Seen) 07/19/23 10:15 Hyaline Casts 0-2 /LPF (0-2) 07/19/23 10:15 Urine Test NEGATIVE (NEGATIVE) 07/19/23 10:15 Salicylates < 5.0 mg/dL (15-30) L 07/19/23 07:15 Urine Opiates Screen POSITIVE (Not Detect) H 07/19/23 10:15 Urine Fentanyl Screen POSITIVE (Not Detect) H 07/19/23 10:15 Acetaminophen < 17 mcg/mL (<30) 07/19/23 07:15 Ur Barbiturates Screen Not Detected (Not Detect) 07/19/23 10:15 Ur Phencyclidine Scrn Not Detected (Not Detect) 07/19/23 10:15 Ur Amphetamines Screen Not Detected (Not Detect) 07/19/23 10:15 U Benzodiazepines Scrn Not Detected (Not Detect) 07/19/23 10:15 Urine Cocaine Screen POSITIVE (Not Detect) H 07/19/23 10:15 U Marijuana (THC) Screen Not Detected (Not Detect) 07/19/23 10:15 Ethyl Alcohol 16 mg/dL 07/19/23 07:15 COVID-19 ([facility]LE[facility]) Negative (Negative) 07/19/23 07:15 COVID-19 Clin Com See Note 07/19/23 07:15 Hep Bs Antigen Negative (Negative) 07/25/23 05:50 Hep Bs Antibody REACTIVE (Nonreactive) 07/25/23 05:50 Hep B Core Total Ab Nonreactive (Nonreactive) 07/25/23 05:50 Hepatitis C Ab (EIA) Reactive (Nonreactive) H 07/25/23 05:50 HIV 1&2 Ab/P24 Ag 4thGn Nonreactive (Nonreactive) 07/25/23 05:50 Impressions Chest X-Ray 07/22/23 15:08 IMPRESSION: Unremarkable chest exam. Pending studies at discharge: 07/25/23: hepatitis C RNA [viral load] Discharge Plan Discharge Anticipated Discharge Date/Time: 07/26/23 09:34 Patient Disposition: Home, Self-Care Discharge Diagnosis: hypoxia due to asthma exacerbation, alcohol withdrawal syndrome, opioid use disorder Referrals: Zachariah,Aneudy Belcher MD [Primary Care Provider] - 1 Week Discharge Medications: New folic acid 1 mg Tablet 1 mg PO DAILY Qty: 30 0RF thiamine mononitrate (vit B1) 100 mg Tablet 100 mg PO DAILY Qty: 30 0RF prednisone 10 mg tablet 10 mg PO DIRECTED Qty: 12 0RF Rx Instructions: 3 tabs daily x 2 days, then 2 tabs daily x 2 days, then 1 tab daily x 2 days Continued famotidine [Pepcid] 20 mg tablet 20 mg PO BID Qty: 60 2RF trazodone 50 mg tablet 50 mg PO BEDTIME PRN (Reason: Sleep) Qty: 30 0RF hydroxyzine HCl 50 mg tablet 50 mg PO TID PRN (Reason: Anxiety) Qty: 30 0RF sertraline 50 mg tablet 50 mg PO DAILY methadone 10 mg/5 mL solution 155 mg PO DAILY Rx Instructions: [facility] in [place] gabapentin 100 mg capsule 100 mg PO DAILY Qty: 30 0RF baclofen 10 mg tablet 10 mg PO TID Changed albuterol sulfate [Ventolin HFA] 90 mcg/actuation HFA aerosol inhaler 2 puff inhalation Q4-6H 30 Days Qty: 8.5 2RF Discharge Orders: Discharge Order (Routine); Ordered 07/26/23 Ordered By: Manuel Del Cid Diet: Advance to usual diet Activity on Discharge: As tolerated Stand Alone Forms: Patient Portal Discharge page Care Plan Goals: sobriety respiratory health Health Concerns: hypoxia due to asthma exacerbation, alcohol withdrawal syndrome, opioid use disorder Plan of Treatment: prednisone 10 mg tabs: 3 tabs daily x 2 days, then 2 tabs daily x 2 days, then 1 tab daily x 2 days albuterol inhaler 2 puffs every 4-6 hours as needed for wheezing or shortness of breath continue methadone at [facility] clinic take folic acid and thimaine as prescribed Please follow up with your primary care doctor within 1 week. Return to the hospital if you experience recurrent or worsening symptoms. Assessment: See Discharge Summary.
--- NOTE | 2023-07-26 10:18 | MHC.CM.PN ---
Second IMM given 07/26. Pt is medically cleared for D/C home to her mothers house. Pts father is going to pick her up and transport her home.
--- NOTE | 2023-07-29 11:31 | P.CDIM_ITS ---
PROVIDER RESPONSE TEXT: To clarify, the appropriate diagnosis supported by the clinical indicators: Mild intermittent QUERY TEXT: PHYSICIAN'S DOCUMENTATION REQUEST Date of Query: 07/25/2023 07:59 AM EDT Patient Name: Марина Delong Admit Date: 07/19/2023 Dear Manuel Del Cid, A review of the medical record indicates additional documentation may be needed. Please review below and update the documentation accordingly. Clinical indicators: PN: Acute hypoxic respiratory failure due to aspiration and asthma exacerbation prn nebs Based on the above, please clarify in the Progress Notes further specificity regarding the type and a cuity of the asthma: Mild intermittent Mild persistent Moderate persistent Severe persistent Other (explain)Clinically unable to determine (explain)Thank you, [place] Torres, CCS, CDIS Use of terms such as suspected, likely, concern for, or probable (associated with a specific diagnosi s that is being evaluated, monitored, or treated as if it exists) are acceptable and can be coded in the inpatient se tting, when documented at the time of discharge. Please use your independent medical judgment in providing your response. THIS QUERY IS PART OF THE PERMANENT MEDICAL RECORD
--- NOTE | 2023-07-29 11:31 | P.CDIM_ITS ---
PROVIDER RESPONSE TEXT: To clarify, the appropriate diagnosis supported by the clinical indicators: Obesity Due to other cause: Metabolic dysfunction QUERY TEXT: PHYSICIAN'S DOCUMENTATION REQUEST Date of Query: 07/25/2023 08:03 AM EDT Patient Name: Марина Delong Admit Date: 07/19/2023 Dear Manuel Del Cid, A review of the medical record indicates additional documentation may be needed. Please review below and update the documentation accordingly. Clinical Indicators: BMI: 37.4 105.2kg 5ft 6in Height and Weight: Obese class II If possible, please provide an associated diagnosis related to the abnormal BMI, such as: Overweight Obesity Due to excess calories Obesity Due to other cause Specify the other cause Other (explain)Clinically unable to determine (explain)Thank you, [place] Torres, CCS, CDIS Use of terms such as suspected, likely, concern for, or probable (associated with a specific diagnosi s that is being evaluated, monitored, or treated as if it exists) are acceptable and can be coded in the inpatient se tting, when documented at the time of discharge. Please use your independent medical judgment in providing your response. THIS QUERY IS PART OF THE PERMANENT MEDICAL RECORD
[2023-07-29 17:58] LABS: HCV Log PCR <1.18 NOT DETECTED Log IU/mL (NOT DETECTED); HepC Viral Load <15 NOT DETECTED IU/mL (NOT DETECTED)
== END 2023-07-26 11:15 | disposition home or self-care (01) | DRG 689 ==
LOC: HO.ED 12:02 → HO.EDOVER 13:05 → HO.IMC 14:05
PROVIDERS: Physician Assistant Medical; Admitting Provider Hospitalist; Emergency Provider Emergency Medicine Emergency Medical Services; PCP Internal Medicine; Visit Provider Family Medicine
DX: N39.0 Urinary tract infection, site not specified (principal); J96.01 Acute respiratory failure with hypoxia; F11.20 Opioid dependence, uncomplicated; J45.21 Mild intermittent asthma with (acute) exacerbation; F10.131 Alcohol abuse with withdrawal delirium; E66.8 Other obesity; Z68.37 Body mass index [BMI] 37.0-37.9, adult; F19.10 Other psychoactive substance abuse, uncomplicated; F17.210 Nicotine dependence, cigarettes, uncomplicated; Y90.0 Blood alcohol level of less than 20 mg/100 ml; Z20.822 Contact with and (suspected) exposure to COVID-19; Z71.6 Tobacco abuse counseling; Z79.899 Other long term (current) drug therapy
CPT/HCPCS: 36415; 71045; 80053; 80143; 80179; 80307; 81001; 81025; 83735; 85025; 85027; 86704; 86706; 86803; 87040; 87340; 87389; 87522; 87635; 94640; 99285; J0696; J1650; J2060; J2543; J2560; J2930

== ENCOUNTER → 2023-07-19 12:59 | Outpatient (BNV) | payer OTHER, SELFPAY | PROVIDERS: Admitting Provider Hospitalist; Emergency Provider Emergency Medicine Emergency Medical Services; Visit Provider Hospitalist | DX: F10.231 Alcohol dependence with withdrawal delirium (principal); F11.20 Opioid dependence, uncomplicated; J45.21 Mild intermittent asthma with (acute) exacerbation; R09.02 Hypoxemia; F10.10 Alcohol abuse, uncomplicated; F19.10 Other psychoactive substance abuse, uncomplicated | CPT/HCPCS: 99223; 99232; 99233; 99239 ==

== ENCOUNTER 2024-12-27 10:57 | Outpatient (AMB) | payer OTHER, SELFPAY ==
[2024-12-27 11:05] VITALS: BP 130/72; PULSE 93; O2SAT 95; BMI 40.5
--- NOTE | 2024-12-27 11:05 | MHC.PC.OV ---
Vital Signs 12/27/24 11:05 Height 5 ft 6 in Weight 251 lb BMI 40.5 BP 130/72 Blood Pressure Location Lt brachial Position Sitting Pulse 93 Pulse Source Pulse Oximeter Pulse Oximetry (%) 95 Oxygen Delivery Method Room Air Intake Visit Reasons: Annual PE Allergies No Known Allergies Allergy (Verified 12/27/24 11:05) Medication List - Last Reconciled 12/27/24 by Aneudy Soni MD albuterol sulfate 90 mcg/actuation (Ventolin HFA) 2 puffs inhalation Q6H PRN baclofen 10 mg PO TID famotidine (Pepcid) 20 mg PO Q12H fluticasone furoate-vilanterol 100-25 mcg/dose (Breo Ellipta) 1 inh inhalation DAILY fluticasone propionate 50 mcg/actuation (Flonase Allergy Relief) 2 sprays intranasal DAILY methadone 165 mg PO DAILY valacyclovir (Valtrex) 500 mg PO DAILY Tobacco use date assessed: 12/27/24 Dental Screening Dental Screen Date: 12/27/24 Did you have a dental visit in the last 12 months?: Yes Did you have a dental problem in the last 6 months where you did not have access to dental care?: No Was dental information given to patient?: Patient has dentist HPI Annual PE HPI Details occ nausea , chest pain , sob on 1 flight of stairs, PFSH Medical History (Updated 12/27/24 @ 12:12 by Aneudy Soni MD) Mild intermittent asthma with (acute) exacerbation Heroin use Alcohol abuse Alcohol withdrawal delirium Hepatitis C Tobacco abuse Hypertension GERD (gastroesophageal reflux disease) Bipolar disorder Migraine Asthma Endocarditis of tricuspid valve Polysubstance abuse Surgical History No pertinent past surgical history Family History (Updated 12/27/24 @ 11:59 by Aneudy Soni MD) Father No problems noted. Mother No problems noted. Maternal Aunt Cancer Cervical cancer Maternal Uncle Cancer Breast cancer Other Mental health disorder Substance use disorder Social History (Updated 12/27/24 @ 12:00 by Aneudy Soni MD) Housing: Other (living with mother) Do you presently have visiting nurse or other home services: No Alcohol intake: current Alcohol type: hard liquor Comment: 1 drink once q 3 month Patient Tobacco Use Status: Current everyday Tobacco user Tobacco use type: Cigarette Cigarette Packs Per Day: 0.5 Cigarettes Per Day: 10 Years Smoked: started 12 years old, 1/2 pack per day- e-Cigarette/Vaping Use: Never Used Second Hand Smoke Exposure: Yes Substance Use Type: Crack/Cocaine, Heroin and Opiates service: No Current occupational status: disabled Cognitive needs: No Hearing needs: No Vision needs: No Questionnaire PHQ-9 Over the last 2 weeks, how often have you been bothered by any of the following problems? 1. Little interest or pleasure in doing things: more than half the days 2. Feeling down, depressed, or hopeless: several days 3. Trouble falling or staying asleep, or sleeping too much: more than half the days 4. Feeling tired or having little energy: nearly every day 5. Poor appetite or overeating: more than half the days 6. Feeling bad about yourself - or that you are a failure or have let yourself or your family down: several days 7. Trouble concentrating on things, such as reading the newspaper or watching television: nearly every day 8. Moving or speaking so slowly that other people could have noticed. Or the opposite - being so fidgety or restless that you have been moving around a lot more than usual: several days 9. Thoughts that you would be better off or of hurting yourself in some way: not at all Total score: 15 Depression Screening Interpretation: Positive Depression Screening Done: Yes 74813 - PHQ-9 Billing: Yes Source: Developed by Drs. Misbah Calvo, Sandra Torres, Solomon Hamiln and colleagues, with an educational gabe from [employer]. Thrive Questionnaire Date Thrive assessed: 12/27/24 I am a: Patient What is your living situation today?: I have a steady place to live Within the past 12 months, did the food you bought not last and you didn't have the money to get more?: Sometimes True Within the past 12 months, did you worry whether your food would run out before you got money to buy more?: Never true Do you have trouble paying for medicines?: No Do you have trouble getting transportation to medical appointments?: Yes Do you have trouble paying your heating and electricity bill?: No Do you have trouble taking care of your child, family member or friend?: No Do you have trouble with day-to-day activities such as bathing, preparing meals, shopping, managing finances, etc.?: No Are you currently unemployed and looking for a job?: Yes Are you interested in more education?: Yes Please select the resources that you would like help with: None Currently or been in a relationship where the following occur: No concerns reported THRIVE Score: 2 AUDIT C Alcohol Use Questionnaire (AUDIT-C) 1. How often do you have a drink containing alcohol?: Monthly or less 2. How many drinks containing alcohol do you have on a typical day when you are drinking?: 1 or 2 3. How often do you have six or more drinks on one occasion?: Never Total Score: 1 ELIZABETH-7 AMB Questionnaire ELIZABETH-7 Date ELIZABETH - 7 assessed: 12/27/24 Feeling nervous, anxious, or on edge: 3 = Nearly every day Not being able to stop or control worryin = More than half the days Worrying too much about different things: 1 = Several days Trouble relaxin = More than half the days Being so restless that it is hard to sit still: 3 = Nearly every day Becoming easily annoyed or irritable: 2 = More than half the days Feeling afraid as if something awful might happen: 0 = Not at all Total ELIZABETH-7 score (0-4 normal; 5-9 mild; 10-14 moderate; 15-21 severe): 13 Source: Developed by Drs. Misbah Calvo, Sandra Torres, Solomon Hamlin and colleagues, with an educational gabe from [employer]. ELIZABETH-7 Assessment Billing ELIZABETH-7 Assessment Tool: ELIZABETH-7 Assessment 50572 Review of Systems Const Denies poor appetite and Denies weakness Eyes Denies no additional complaints ENT Reports Normal hearing present, Denies dizziness, Denies nasal congestion, Denies tinnitus and Denies sore throat Card Denies chest pain, Denies syncope, Denies rapid heart rate and Denies dyspnea Resp Denies cough and Denies dyspnea GI Denies change in stool character, Reports constipation, Denies diarrhea, Denies nausea and Denies vomiting Denies urinary frequency, Denies difficulty voiding and Denies dysuria Neuro Reports Normal hearing present, Denies confusion, Denies dizziness, Denies syncope and Denies weakness Psych Denies confusion Physical exam (Primary Care) Vital Signs: Last Vital Signs Pulse 93 12/27/24 11:05 BP 130/72 12/27/24 11:05 Pulse Ox 95 12/27/24 11:05 Oxygen Delivery Method Room Air 12/27/24 11:05 BMI result Body Mass Index 40.5 Tobacco/Smoking Status: Tobacco use Status Tobacco use date assessed 12/27/24 12/27/24 11:06 Patient Tobacco Use Status Current everyday Tobacco 12/27/24 12:00 Tobacco use type Cigarette 12/27/24 12:00 e-Cigarette/Vaping Use Never Used 12/27/24 12:00 PHQ-9: PHQ-9 Score PHQ-9: Total score 15 12/27/24 11:51 Depression Screening Interpretation: Positive Thrive Assessment: Date of Thrive Assessment Date Thrive assessed 12/27/24 12/27/24 11:06 Currently or been in a relationship where the following occur: No concerns reported Const General: No confusion Orientation/consciousness: No confusion HENMT Head: Yes normocephalic Ears: external ears normal and TM's normal bilaterally Face and sinus: Yes normal facial exam Mouth: moist mucous membranes Throat: Yes tonsils normal Eyes Conjunctivae: conjunctivae normal Pupils: Equal, round and reactive pupils present and Pupil accommodation reflex normal Direct Ophthalmoscopy: normal light reflex Neck Neck: No lymphadenopathy Thyroid: Thyroid normal Chest Chest palpation & inspection: normal inspection of the chest Resp Effort & Inspection: normal respiratory effort and no audible wheezes Auscultation: clear to auscultation bilaterally, no crackles, no wheezes and lung sounds not diminished Cardio Rate: regular rate Rhythm: regular rhythm Peripheral pulses: radial pulses present and dorsalis pedis present GI Palpation (GI): no masses Auscultation: normal bowel sounds and normoactive bowel sounds Rectal Exam - Female: deferred Skin General skin exam: no rashes or lesions noted Rashes: no rashes Neuro General: No confusion Cranial nerves: Yes Equal, round and reactive pupils present and Yes Normal hearing present Cognition (Neuro): normal cognition Gait exam (Neuro): Normal gait present Motor exam (neuro): 5/5 motor strength present throughout Deep tendon reflexes (DTR's): Right brachioradialis reflex intensity grade: 2+, Left brachioradialis reflex intensity grade: 2+, Right patellar reflex intensity grade: 2+ and Left patellar reflex intensity grade: 2+ Extrem General: No edema Coding Level of Care Code Est Pt Prev Care 18-39y(67886) Diagnoses Annual physical exam Z00.00 Asthma J45.909 Bipolar disorder, current episode mixed, moderate F31.62 Active/Remission status: currently active Current bipolar episode type: mixed Current episode severity: moderate GERD (gastroesophageal reflux disease) K21.9 Essential hypertension I10 Hypertension type: essential hypertension Tobacco abuse Z72.0 Polysubstance abuse F19.10 Alcohol abuse F10.10 Allergic rhinitis J30.9 Morbid obesity E66.01 Additional Codes ELIZABETH-7 Assessment Billing - ELIZABETH-7 Assessment Tool: ELIZABETH-7 Assessment 20247 ([id number]) PHQ-9 - 39927 - PHQ-9 Billing: Yes ([id number]) Assessment & Plan Assessment & Plan (1) Annual physical exam: Code(s): Z00.00 - Encounter for general adult medical examination without abnormal findings Category: Medical Plan: Patient is advised to eat healthy, keep well hydrated, keep active and have adequate sleep. (2) Asthma: Code(s): J45.909 - Unspecified asthma, uncomplicated Category: Medical (3) Bipolar disorder: Comment: WILDER Mccollum Code(s): F31.9 - Bipolar disorder, unspecified Category: Medical Qualifiers: Active/Remission status: currently active Current bipolar episode type: mixed Current episode severity: moderate Qualified Code(s): F31.62 - Bipolar disorder, current episode mixed, moderate Plan: Discussed about continuing with counseling and therapy (4) GERD (gastroesophageal reflux disease): Code(s): K21.9 - Gastro-esophageal reflux disease without esophagitis Category: Medical Plan: Avoid the foods that causes that usually spicy foods, tomato products, juices, coffee, soda and foods that your sensitive to. After eating do not lie down, allow 3-4 hours before in lie down. And keep the head of bed above 30 degrees to avoid the acid from going up. Patient is advised to stop smoking (5) Hypertension: Code(s): I10 - Essential (primary) hypertension Category: Medical Qualifiers: Hypertension type: essential hypertension Qualified Code(s): I10 - Essential (primary) hypertension Plan: Blood pressure has been under control (6) Tobacco abuse: Code(s): Z72.0 - Tobacco use Category: Medical Plan: Patient is strongly advised to stop smoking (7) Polysubstance abuse: Comment: Suboxone, heroin abuse, overdose February 2009, opiate addiction, overdose again May 2020 stopped 2022! Code(s): F19.10 - Other psychoactive substance abuse, uncomplicated Category: Medical Plan: Continue with methadone clinic (8) Alcohol abuse: Code(s): F10.10 - Alcohol abuse, uncomplicated Category: Social Hx (9) Allergic rhinitis: Code(s): J30.9 - Allergic rhinitis, unspecified Category: Medical (10) Morbid obesity: Code(s): E66.01 - Morbid (severe) obesity due to excess calories Category: Medical Plan History of Present Illness The patient is a 39-year-old female presenting for a routine physical examination. Her medical history is marked by morbid obesity, bipolar disorder, and asthma. The patient also suffers from gastroesophageal reflux disease (GERD) and essential hypertension, for which long-term management is required. There is a history of polysubstance abuse, including smoking and alcohol use disorder. She was treated successfully for hepatitis C in 2010 and is currently engaging in methadone maintenance therapy. Recent lab results in 2022 showed mild anemia with normal electrolytes and renal function. Liver function tests indicated elevated levels as of July 2023. The patient is particularly conscientious about managing her weight and is initiating ZeppBound therapy, which is administered via injection, to assist with weight reduction. Vaccine uptake has been minimal, as the patient expresses an aversion to needles. Health maintenance advice focuses on diet, activity, and avoidance of sedentary behavior. Health Maintenance - Lifestyle modification discussions emphasized the importance of a healthy diet and regular physical activity. - Acknowledged patient?s reluctance towards vaccinations and encouraged consideration given the risk of outbreaks. - Recent blood work revealed mild anemia; further evaluation is planned. - Objective to reduce medication dependency through weight loss and promote sustainable lifestyle changes. Social History - Smokes tobacco. - History of polysubstance abuse; currently on methadone maintenance therapy. - History of alcohol use disorder. - Displays reluctance towards injectable treatments or vaccines due to needle aversion. - Engaged in weight management efforts, planning to initiate ZeppBound therapy. Review of Systems - Respiratory: Reports asthma. - Psychiatric: Reports bipolar disorder. Physical Exam General: Cooperative, morbidly obese, comfortable, no acute distress and well developed Orientation: Patient oriented x3 Limitations: No limitations Head: Normal to inspection Ears: Hearing grossly normal bilaterally Nose: Normal external nose present Face and sinus: Normal facial exam Eyes: Appearance normal, both eyes and all related structures Neck: Normal visual inspection and Yes full ROM Respiratory: Normal respiratory effort and able to speak in complete sentences. Clear to auscultation bilaterally Cardiovascular: Regular rate and rhythm. Normal S1 and S2 GI: Normal to inspection. Soft to palpation and nontender Skin: No rashes or lesions noted Neuro: Patient oriented x3 Extremities: Normal to inspection Results - Labs: Blood work in 2022 showing mild anemia (Hb 11.7), normal electrolytes, normal renal function, elevated liver function tests in July 2023. Plan The management plan includes initiating ZeppBound therapy to aid in weight loss, with monitoring every three weeks to assess effectiveness. Given the patient's aversion to needles, encouragement was provided to consider vaccination due to recent outbreaks. The patient's asthma, bipolar disorder, and elevated liver function require ongoing surveillance. A comprehensive lifestyle modification approach was discussed. The patient is advised to maintain a healthy diet and to increase physical activity to support weight management goals and overall health. Patient was informed and verbally consented to the use of an ambient scribe for clinic note documentation during this visit. Discussion Notes During the consultation, I discussed with the patient the importance of managing her morbid obesity as it impacts her hypertension and GERD. The strategy of using ZeppBound therapy was agreed upon, and it was explained that its injective nature might initially deter her but could provide substantial benefits. Emphasis was placed on regular physical activity and the need for dietary adjustments as a foundation for long-term health improvements. I addressed the risk of foregone vaccination, emphasizing protection against infectious diseases amidst outbreaks. We agreed to monitor anemia and liver function results through regular blood tests. Follow-up was planned for three months to evaluate the progress of the interventions and discuss any necessary adjustments. Patient Instructions - Follow a balanced diet and engage in regular physical activity. - Begin ZeppBound therapy with weekly injections, monitoring effect after three weeks. - Avoid smoking and limit alcohol use as much as possible. - Consider the benefits of vaccinations despite aversion to needles. - Schedule a follow-up visit in three months for progress assessment. - Report any side effects or health concerns immediately. - Continue managing asthma and bipolar disorder as per current regimen. Orders: Orders Complete Blood Count Auto Diff Today J45.909 - Unspecified asthma, uncomplicated Comprehensive Met. Panel Today J45.909 - Unspecified asthma, uncomplicated Free T4 (Free Thyroxine) Today J45.909 - Unspecified asthma, uncomplicated Thyroid Stimulating Hormone Today J45.909 - Unspecified asthma, uncomplicated UA CC w/rflx Micro + Cult Today J45.909 - Unspecified asthma, uncomplicated, R30.0 - Dysuria Vitamin D 25-OH Total Today J45.909 - Unspecified asthma, uncomplicated PFT pulmonary function test Today J45.909 - Unspecified asthma, uncomplicated XR chest 2V Today J45.909 - Unspecified asthma, uncomplicated Lipid Panel Today E78.00 - Pure hypercholesterolemia, unspecified, J45.909 - Unspecified asthma, uncomplicated Vitamin B12 and Folate Today J45.909 - Unspecified asthma, uncomplicated Medications: New baclofen 10 mg PO TID 90 tabs 1RF F19.10 - Other psychoactive substance abuse, uncomplicated famotidine (Pepcid) 20 mg PO Q12H 60 tabs 2RF K21.9 - Gastro-esophageal reflux disease without esophagitis famotidine (Pepcid) 20 mg PO Q12H 60 tabs 2RF K21.9 - Gastro-esophageal reflux disease without esophagitis albuterol sulfate 90 mcg/actuation (Ventolin HFA) 2 puffs inhalation Q6H PRN 8.5 grams 0RF bronchospasm J45.909 - Unspecified asthma, uncomplicated fluticasone furoate-vilanterol 100-25 mcg/dose (Breo Ellipta) 1 inh inhalation DAILY 60 ea 3RF J45.909 - Unspecified asthma, uncomplicated fluticasone propionate 50 mcg/actuation (Flonase Allergy Relief) administer into each nostril 2 sprays intranasal DAILY 16 grams 1RF J30.9 - Allergic rhinitis, unspecified valacyclovir (Valtrex) 500 mg PO DAILY 90 tabs 0RF J45.909 - Unspecified asthma, uncomplicated tirzepatide (weight loss) (Zepbound) for 4 weeks 2.5 mg (0.5 mL) subcut QWEEK 2 mL 1RF E66.01 - Morbid (severe) obesity due to excess calories
--- OUTSIDE RECORDS SUMMARY | 2024-12-27 12:42 | XMS_ITS | Clinical Summary ---
Author Organization [facility] Address [address] [place] [id number] Phone Care Team Providers Care District Court Bailiff Name Role Phone Unavailable Primary Care Provider Unavailabl e Immunizations Immunization Administration Dates Next Due DTP 11/12/1996,,05/12/1996,1990 Hep B, ped/adol 12/29/1998,08/09/1998,07/07/1998 IPV 08/12/1996,,02/09/1994,1990 MMR 07/07/1998,06/12/1991 Td (adult) (MBL), 2 Lf tetan us toxoid, PF, adsorbed 02/09/1994 Social History Tobacco Use Types Packs/Day Years Used Date Smoking Tobacco: Never Assessed Comments Unknown Sex and Gender Information Value Date Recorded Sex Assigned at Not on file Legal Sex Female 4:09 PM EDT Gender Identity Not on file Sexual Orientation Not on file Plan of Treatment Health Maintenance Due Date Last Done Comments Varicella Vaccines (1 of 2 - 13+ 2-dose series) 1999 DTaP,Tdap,and Td Vaccines (6 - Tdap) 11/12/2006 11/12/1996, 08/12/1996, 05/12/1996, Additional history exists Influenza Vaccines (#1) 2024 COVID-19 Vaccine ( season) 2024 IPV Vaccines Completed 08/12/1996, 07/10/1995, 02/09/1994, Additional history exists MMR Vaccines Completed 07/07/1998, 06/12/1991 Hepatitis B Vaccines Completed 12/29/1998, 08/09/1998, 07/07/1998 HIB Vaccines Aged Out No longer eligi ble based on patient's age to complete this topic HPV Vaccines Aged Out No longer eligi ble based on patient's age to complete this topic Hepatitis A Vaccines Aged Out No long er eligible based on patient's age to complete this topic Men B Vaccine Aged Out No longer elig ible based on patient's age to complete this topic Meningococcal Vaccine Aged Out No irais lida eligible based on patient's age to complete this topic Pneumococcal Vaccine Aged Out No long er eligible based on patient's age to complete this topic
--- OUTSIDE RECORDS SUMMARY | 2024-12-27 12:42 | XMS_ITS | Encounter Summary ---
Author Organization [facility] Address [address] [place] [phone] Phone Care Team Providers Care Regional Sales Representative Name Role Phone Unavailable Primary Care Provider Unavailabl e Encounter Details Date Type Department Care Team (Late st Contact Info) Description 05/29/2017 Conversion Encounter [facility] - [address] [address] Social History Tobacco Use Types Packs/Day Years Used Date Smoking Tobacco: Never Assessed Comments Unknown Sex and Gender Information Value Date Recorded Sex Assigned at Not on file Legal Sex Female 4:09 PM EDT Gender Identity Not on file Sexual Orientation Not on file documented as of this encounter Plan of Treatment Not on file documented as of this encounter Visit Diagnoses Not on filedocumented in this encounter
--- OUTSIDE RECORDS SUMMARY | 2024-12-27 12:42 | XMS_ITS | Clinical Summary ---
Author Organization [facility] it Address [address] [place] [address] Care Team Providers Care Seismic Plotter Name Role Phone Adina Polanco MD Primary Care Provider [phone] Medical History Medical History Date Comments Allergic rhinitis 12/07/2018 DX:Allergic rh initis Anxiety and depression 12/07/2018 DX:Anxiet y and depression Asthma 12/07/2018 DX:Asthma Constipation 12/07/2018 DX:Constipation History of drug overdose 12/07/2018 DX:Hist ory of drug overdose History of endocarditis 12/07/2018 DX:Histo ry of endocarditis; COMMENT: Infective endocarditis with TV vegetation. ? Septic emboli History of hepatitis C 12/07/2018 DX:Histor y of hepatitis C; COMMENT: Treatment 2010 Dr Pineda History of polydrug abuse (CMS/HCC) 12/07/2018 DX:History of polydrug abuse (HCC); COMMENT: Suboxone heroin abuse Migraine 12/07/2018 DX:Migraine PTSD (post-traumatic stress disorder) 12/07/2018 DX:PTSD (post-traumatic stress disorder) TSH deficiency 12/07/2018 DX:TSH deficienc y Social History Tobacco Use Types Packs/Day Years Used Date Smoking Tobacco: Never Assessed Comments Unknown Sex and Gender Information Value Date Recorded Sex Assigned at Not on file Legal Sex Female 10:56 AM EST Gender Identity Not on file Sexual Orientation Not on file Obstetrics History Plan of Treatment Health Maintenance Due Date Last Done Comments DTaP,Tdap,and Td Vaccines (1 - Tdap) 2005 Hepatitis B Vaccines (1 of 3 - 19+ 3-dose series) 2005 Cervical Cancer Screening: P ap Smear 2007 COVID-19 Vaccine (2023-2 5 season) 2024 Influenza Vaccine (#1) 2024 HIB Vaccines Aged Out No longer eligi ble based on patient's age to complete this topic HPV Vaccines Aged Out No longer eligi ble based on patient's age to complete this topic Hepatitis A Vaccines Aged Out No long er eligible based on patient's age to complete this topic IPV Vaccines Aged Out No longer eligi ble based on patient's age to complete this topic MMR Vaccines Aged Out No longer eligi ble based on patient's age to complete this topic Meningococcal ACWY Vaccine Aged Out N o longer eligible based on patient's age to complete this topic Meningococcal B Vacine Aged Out No lo nger eligible based on patient's age to complete this topic Pneumococcal Vaccine: Pediat rics (0 to 5 Years) and At-Risk Patients (6 to 64 Years) Aged Out No longer eligible b ased on patient's age to complete this topic RSV Immunization Patients Un kristina 20 months Aged Out No longer eligible b ased on patient's age to complete this topic Varicella Vaccines Aged Out No longer eligible based on patient's age to complete this topic Care Teams Seismic Plotter Relationship Specialty Start Date End Date Adina Polanco MD PCP - General Internal Medicine 08/31/15
== END 2024-12-27 12:20 | disposition home or self-care (01) ==
LOC: HO.HMCH 10:58
PROVIDERS: PCP Internal Medicine; Visit Provider Internal Medicine
DX: Z00.00 Encounter for general adult medical examination without abnormal findings (principal); F31.62 Bipolar disorder, current episode mixed, moderate; E66.01 Morbid (severe) obesity due to excess calories; Z68.41 Body mass index [BMI] 40.0-44.9, adult; F19.10 Other psychoactive substance abuse, uncomplicated; J45.909 Unspecified asthma, uncomplicated; K21.9 Gastro-esophageal reflux disease without esophagitis; I10 Essential (primary) hypertension; Z72.0 Tobacco use; F10.10 Alcohol abuse, uncomplicated; J30.9 Allergic rhinitis, unspecified

== ENCOUNTER → 2024-12-27 10:57 | Outpatient (BNVA) | payer OTHER, SELFPAY | PROVIDERS: PCP Internal Medicine; Visit Provider Internal Medicine | DX: Z00.00 Encounter for general adult medical examination without abnormal findings (principal); J45.909 Unspecified asthma, uncomplicated; F31.62 Bipolar disorder, current episode mixed, moderate; K21.9 Gastro-esophageal reflux disease without esophagitis; I10 Essential (primary) hypertension; F19.10 Other psychoactive substance abuse, uncomplicated; F10.10 Alcohol abuse, uncomplicated; E66.01 Morbid (severe) obesity due to excess calories; Z68.41 Body mass index [BMI] 40.0-44.9, adult; Z72.0 Tobacco use; Z71.3 Dietary counseling and surveillance; Z71.6 Tobacco abuse counseling | CPT/HCPCS: 96127 ==

== ENCOUNTER 2025-02-21 15:10 | Outpatient (AMB) | payer OTHER, SELFPAY ==
--- OUTSIDE RECORDS SUMMARY | 2025-02-21 15:16 | XMS_ITS | Encounter Summary ---
Author Organization [facility] Address [address] [place] [phone] Phone Care Team Providers Care Power House Engineer Name Role Phone Unavailable Primary Care Provider Unavailabl e Encounter Details Date Type Department Care Team (Late st Contact Info) Description 05/29/2017 Conversion Encounter [facility] - [address] [id number] Social History Tobacco Use Types Packs/Day Years [...]
--- OUTSIDE RECORDS SUMMARY | 2025-02-21 15:16 | XMS_ITS | Clinical Summary ---
Author Organization [facility] Address [address] [place] [phone] Phone Care Team Providers Care Customer Service Correspondence Clerk Name Role Phone Unavailable Primary Care Provider [...]
--- NOTE | 2025-02-21 15:29 | MHC.PC.OV ---
Vital Signs 02/21/25 15:30 Height 5 ft 6 in Weight 244 lb 8 oz BMI 39.5 BP 120/86 Blood Pressure Location Rt brachial Position Sitting Pulse 94 Pulse Source Pulse Oximeter Temp 96.9 F Temp Source Temporal Artery Scan Pulse Oximetry (%) 96 Oxygen Delivery Method Room Air Intake Visit Reasons: Med f/u [employer] Brusher Required: No Accompanied by: Self / Same As Patient Allergies No Known Allergies Allergy (Verified 02/21/25 15:31) Tobacco use date assessed: 12/27/24 Dental Screening Dental Screen Date: 12/27/24 [facility], [facility] Medical History (Updated 02/21/25 @ 15:43 by Aneudy Soni MD) Morbid obesity Obesity (BMI 30-39.9) Mild intermittent asthma with (acute) exacerbation Heroin use Alcohol abuse Alcohol withdrawal delirium Hepatitis C Tobacco abuse Hypertension GERD (gastroesophageal reflux disease) Bipolar disorder Migraine Asthma Endocarditis of tricuspid valve Polysubstance abuse Surgical History No pertinent past surgical history Family History (Updated 12/27/24 @ 11:59 by Aneudy Soni MD) Father No problems noted. Mother No problems noted. Maternal Aunt Cancer Cervical cancer Maternal Uncle Cancer Breast cancer Other Mental health disorder Substance use disorder Social History (Updated 12/27/24 @ 12:00 by Aneudy Soni MD) Housing: Other (living with mother) Do you presently have visiting nurse or other home services: No Alcohol intake: current Alcohol type: hard liquor Comment: 1 drink once q 3 month Patient Tobacco Use Status: Current everyday Tobacco user Tobacco use type: Cigarette Cigarette Packs Per Day: 0.5 Cigarettes Per Day: 10 Years Smoked: started 12 years old, 1/2 pack per day- e-Cigarette/Vaping Use: Never Used Second Hand Smoke Exposure: Yes Substance Use Type: Crack/Cocaine, Heroin and Opiates service: No Current occupational status: disabled Cognitive needs: No Hearing needs: No Vision needs: No Questionnaire Thrive Questionnaire Date Thrive assessed: 12/27/24 I am a: Patient What is your living situation today?: I have a steady place to live Within the past 12 months, did the food you bought not last and you didn't have the money to get more?: Sometimes True Within the past 12 months, did you worry whether your food would run out before you got money to buy more?: Never true Do you have trouble paying for medicines?: No Do you have trouble getting transportation to medical appointments?: Yes Do you have trouble paying your heating and electricity bill?: No Do you have trouble taking care of your child, family member or friend?: No Do you have trouble with day-to-day activities such as bathing, preparing meals, shopping, managing finances, etc.?: No Are you currently unemployed and looking for a job?: Yes Are you interested in more education?: Yes Please select the resources that you would like help with: None Currently or been in a relationship where the following occur: No concerns reported THRIVE Score: 2 ELIZABETH-7 AMB Questionnaire ELIZABETH-7 Date ELIZABETH - 7 assessed: 12/27/24 Source: Developed by Drs. Misbah Calvo, Sandra Torres, Solomon Hamlin and colleagues, with an educational gabe from [employer]. Physical exam (Primary Care) Vital Signs: Last Vital Signs Temp 96.9 F 02/21/25 15:30 Pulse 94 02/21/25 15:30 BP 120/86 02/21/25 15:30 Pulse Ox 96 02/21/25 15:30 Oxygen Delivery Method Room Air 02/21/25 15:30 BMI result Body Mass Index 39.5 Tobacco/Smoking Status: Tobacco use Status Tobacco use date assessed 12/27/24 02/21/25 15:29 Patient Tobacco Use Status Current everyday Tobacco 02/21/25 15:29 Tobacco use type Cigarette 02/21/25 15:29 e-Cigarette/Vaping Use Never Used 02/21/25 15:29 Thrive Assessment: Date of Thrive Assessment Date Thrive assessed 12/27/24 02/21/25 15:29 Currently or been in a relationship where the following occur: No concerns reported Const General: alert; No acute distress Eyes Conjunctivae: conjunctivae normal Resp Auscultation: clear to auscultation bilaterally Cardio Rate: regular rate Rhythm: regular rhythm GI Inspection: Yes normal to inspection Extrem General: Yes normal to inspection and No edema Coding Level of Care Code Est Pt Level 4 (32820) Complex EM visit Add On G2211 Diagnoses Obesity (BMI 30-39.9) E66.9 Tobacco abuse Z72.0 Asthma J45.909 Bipolar disorder, current episode mixed, moderate F31.62 Active/Remission status: currently active Current bipolar episode type: mixed Current episode severity: moderate GERD (gastroesophageal reflux disease) K21.9 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 (3) Asthma: Code(s): J45.909 - Unspecified asthma, uncomplicated Category: Medical Plan: Patient is strongly advised to stop smoking! On albuterol and Breo (4) Bipolar disorder: Comment: [facility] Code(s): F31.9 - Bipolar disorder, unspecified Category: Medical Qualifiers: Active/Remission status: currently active Current bipolar episode type: mixed Current episode severity: moderate Qualified Code(s): F31.62 - Bipolar disorder, current episode mixed, moderate Plan: Continue with counseling and therapy (5) GERD (gastroesophageal reflux disease): Code(s): K21.9 - Gastro-esophageal reflux disease without esophagitis Category: Medical Plan: Avoid the foods that causes that usually spicy foods, tomato products, juices, coffee, soda and foods that your sensitive to. After eating do not lie down, allow 3-4 hours before in lie down. And keep the head of bed above 30 degrees to avoid the acid from going up. (6) Methadone maintenance therapy patient: Code(s): F11.20 - Opioid dependence, uncomplicated Category: Medical Plan: Continue follow-up with methadone maintenance Plan History of Present Illness The patient is a 39-year-old female presenting with a request for a follow-up visit. Her medical history includes bipolar disorder, asthma, GERD, hypertension, substance use disorder, and prior treatment for hepatitis C. Notably, she has recently experienced a six-pound weight loss. Current treatments include albuterol, methadone, and Pepcid, with an issue noted with the availability of her prescribed Breo. Patient adherence to methadone maintenance is stable, and she reports satisfaction with her current medication regimen. There is a focus on weight management and smoking cessation. Health Maintenance - Strong advisement given for smoking cessation - Discussion of weight management strategies, including dietary and exercise interventions - Vaccinations up to date, including tetanus and pneumonia shots. - Plan to check viral load post-hepatitis C treatment - Routine blood work requests are in place to assess general health measures including diabetes and liver function tests. Social History - History of tobacco use with current smoking - Engaged in methadone maintenance therapy - Active involvement in weight management through dietary changes and exercise Review of Systems - Constitutional: Reports weight loss - Respiratory: Reports asthma; using albuterol and Breo - Gastrointestinal: Reports GERD, managed with Pepcid - Neurologic: Reports history of bipolar disorder - Allergies/Immunologic: Using nasal allergy spray Physical Exam Results - Labs: Blood work performed in July 2023, follow-up planned for fasting blood sugar and cholesterol, liver function, and viral load for hepatitis C. Plan Management during this visit focused on maintaining current therapies and advancing smoking cessation, weight loss, and post-hepatitis C assessment efforts. The patient remains on stable doses of albuterol for asthma and methadone for substance maintenance, although Breo retrieval issues are noted. Dietary guidance and encouragement of physical activity aim to support weight management. A request is placed in the lab for comprehensive blood work, including liver function and viral load post-treatment for hepatitis C. Continued emphasis on patient adherence to counseling and therapy sessions was confirmed, with adjustments to antihypertensive and reflux management as appropriate. The patient?s vaccinations remain current. Patient was informed and verbally consented to the use of an ambient scribe for clinic note documentation during this visit. Discussion Notes I discussed continued management of asthma with the patient, emphasizing medication adherence and follow-up on Breo acquisition. I strongly advised smoking cessation for its comprehensive health benefits. We reviewed the need for regular monitoring in the context of bipolar disorder management, confirming medication compliance. The importance of laboratory follow-up, especially regarding her viral load post-hepatitis C therapy, was underscored. Additionally, dietary and exercise strategies were re-emphasized, aiming at comprehensive weight management. Follow-up on routine blood work, comprising diabetes risk evaluation, liver function, and cholesterol levels, is planned, with the understanding of potential fasting requirements. Patient Instructions - Attend lab for fasting blood work as scheduled. - Follow counseling and therapy advice to maintain current health treatments. - Engage in smoking cessation efforts. - Continue dietary changes and regular exercise for weight management. - Follow up on hepatitis C viral load testing. - Monitor asthma management and attempt retrieval of Breo prescription. - Contact the office with any urgent concerns or new health issues. Orders: Orders Hepatitis C Antibody Today B19.20 - Unspecified viral hepatitis C without hepatic coma Complete Blood Count Auto Diff Today B19.20 - Unspecified viral hepatitis C without hepatic coma Comprehensive Met. Panel Today B19.20 - Unspecified viral hepatitis C without hepatic coma Ferritin Today B19.20 - Unspecified viral hepatitis C without hepatic coma IRON PROFILE Today B19.20 - Unspecified viral hepatitis C without hepatic coma Lipid Panel Today B19.20 - Unspecified viral hepatitis C without hepatic coma, E78.00 - Pure hypercholesterolemia, unspecified Free T4 (Free Thyroxine) Today B19.20 - Unspecified viral hepatitis C without hepatic coma UA w Microscopic Today B19.20 - Unspecified viral hepatitis C without hepatic coma Hepatitis C Genotype Today B19.20 - Unspecified viral hepatitis C without hepatic coma Hepatitis C Viral Load Today B19.20 - Unspecified viral hepatitis C without hepatic coma Reticulocyte Count Today B19.20 - Unspecified viral hepatitis C without hepatic coma Vitamin B12 and Folate Today B19.20 - Unspecified viral hepatitis C without hepatic coma Vitamin D 25-OH Total Today B19.20 - Unspecified viral hepatitis C without hepatic coma Thyroid Stimulating Hormone Today B19.20 - Unspecified viral hepatitis C without hepatic coma Hemoglobin A1c Today B19.20 - Unspecified viral hepatitis C without hepatic coma Uric Acid Today B19.20 - Unspecified viral hepatitis C without hepatic coma Referrals Medical Weight Management Referral E66.9 - Obesity, unspecified
[2025-02-21 15:30] VITALS: BP 120/86; PULSE 94; TEMP 36.1; O2SAT 96; BMI 39.5
== END 2025-02-21 15:52 | disposition home or self-care (01) ==
LOC: HO.HMCH 15:11
PROVIDERS: PCP Internal Medicine; Visit Provider Internal Medicine
DX: F11.20 Opioid dependence, uncomplicated (principal); F31.62 Bipolar disorder, current episode mixed, moderate; Z68.39 Body mass index [BMI] 39.0-39.9, adult; E66.9 Obesity, unspecified; K21.9 Gastro-esophageal reflux disease without esophagitis; Z72.0 Tobacco use; J45.909 Unspecified asthma, uncomplicated

== ENCOUNTER → 2025-02-21 15:10 | Outpatient (BNVA) | payer OTHER, SELFPAY | PROVIDERS: PCP Internal Medicine; Visit Provider Internal Medicine | DX: E66.9 Obesity, unspecified (principal); J45.909 Unspecified asthma, uncomplicated; F31.62 Bipolar disorder, current episode mixed, moderate; K21.9 Gastro-esophageal reflux disease without esophagitis; F11.20 Opioid dependence, uncomplicated; B19.20 Unspecified viral hepatitis C without hepatic coma; E78.00 Pure hypercholesterolemia, unspecified; I10 Essential (primary) hypertension; F17.210 Nicotine dependence, cigarettes, uncomplicated; Z68.39 Body mass index [BMI] 39.0-39.9, adult | CPT/HCPCS: 99212 ==

== ENCOUNTER → 2025-03-24 08:21 | Outpatient (BNVA) | payer OTHER, SELFPAY | PROVIDERS: PCP Internal Medicine; Visit Provider Surgery ==

== ENCOUNTER 2025-09-26 13:25 | Outpatient (AMB) | payer OTHER, SELFPAY ==
--- NOTE | 2025-09-26 13:31 | A.OFFPC_ITS ---
Vital Signs 09/26/25 13:32 Height 5 ft 6 in Weight 215 lb BMI 34.7 BP 138/76 Blood Pressure Location Rt brachial Position Sitting Respiration 18 Pulse 99 Pulse Source Pulse Oximeter Temp Source Temporal Artery Scan Pulse Oximetry (%) 96 Oxygen Delivery Method Room Air Intake Visit Reasons: obesity Ab Initio Etl Developer Required: No Accompanied by: Self / Same As Patient Allergies No Known Allergies Allergy (Verified 09/26/25 13:57) Medication List - Last Reconciled 09/26/25 by EMIL Carias albuterol sulfate 90 mcg/actuation (Ventolin HFA) 2 puffs inhalation Q6H PRN baclofen 10 mg PO TID famotidine (Pepcid) 20 mg PO Q12H fluticasone furoate-vilanterol 100-25 mcg/dose (Breo Ellipta) 1 inh inhalation DAILY fluticasone propionate 50 mcg/actuation (Flonase Allergy Relief) 2 sprays intranasal DAILY methadone 165 mg PO DAILY valacyclovir (Valtrex) 500 mg PO DAILY Tobacco use date assessed: 09/26/25 Dental Screening Dental Screen Date: 09/26/25 HPI HPI Comments History of Present Illness Details The patient is a 40-year-old female presenting for follow-up and medication management. Her primary request is for a prescription for brand-name Breo Ellipta, which she has been without for approximately six months due to insurance issues, and reports her breathing is significantly worse without it. She has a history of asthma. The patient also reports symptoms she likens to having a cold for the past two months, which she now believes are due to allergies, and requests to be put back on Claritin. These symptoms include a cough and significant congestion, which have recently shown some improvement with Benadryl after Mucinex was ineffective. Her history includes heartburn, which is well-controlled with famotidine. She has a history of opioid dependence and is currently in a methadone maintenance program, attending the clinic once a month and seeing a counselor weekly for substance abuse. She smokes tobacco, and her consumption has recently increased from half a pack to about a pack per day due to stress. Health Maintenance - The patient is actively trying to lose weight. - Counseling: Attends weekly substance a buse counseling and is considering rejoining group therapy. - The patient has an upcoming follow-up appointment with Dr. Soni scheduled for January 03 at 11:00 AM. Social History - Tobacco use: Currently smokes about on e pack of cigarettes per day, an increase from a half pack or less, which she attributes to stress. - Substance use: The patient is on metha done maintenance therapy, attending a clinic monthly. - Behavioral health: She attends substan ce abuse counseling weekly and is considering rejoining group therapy. - Weight management: Reports she is tryi ng to lose weight and appears to have had some success. Results [facility] Medical History Morbid obesity Obesity (BMI 30-39.9) Mild intermittent asthma with (acute) exacerbation Heroin use Alcohol abuse Alcohol withdrawal delirium Hepatitis C Tobacco abuse Hypertension GERD (gastroesophageal reflux disease) Bipolar disorder Migraine Asthma Endocarditis of tricuspid valve Polysubstance abuse Surgical History No pertinent past surgical history Family History Father No problems noted. Mother No problems noted. Maternal Aunt Cancer Cervical cancer Maternal Uncle Cancer Breast cancer Other Mental health disorder Substance use disorder Social History Housing: Other (living with mother) Do you presently have visiting nurse or other home services: No Alcohol intake: former Comment: 1 drink once q 3 month Patient Tobacco Use Status: Current everyday Tobacco user Tobacco use type: Cigarette Cigarette Packs Per Day: 1 Cigarettes Per Day: 20 Years Smoked: started 12 years old, 1/2 pack per day- e-Cigarette/Vaping Use: Never Used Second Hand Smoke Exposure: Yes Substance Use Type: Crack/Cocaine, Heroin and Opiates service: No Current occupational status: disabled Cognitive needs: No Hearing needs: No Vision needs: No Questionnaire Thrive Questionnaire Date Thrive assessed: 09/26/25 I am a: Patient What is your living situation today?: I have a steady place to live Within the past 12 months, did the food you bought not last and you didn't have the money to get more?: Sometimes True Within the past 12 months, did you worry whether your food would run out before you got money to buy more?: Never true Do you have trouble paying for medicines?: No Do you have trouble getting transportation to medical appointments?: Yes Do you have trouble paying your heating and electricity bill?: No Do you have trouble taking care of your child, family member or friend?: No Do you have trouble with day-to-day activities such as bathing, preparing meals, shopping, managing finances, etc.?: No Are you currently unemployed and looking for a job?: Yes Are you interested in more education?: Yes Please select the resources that you would like help with: None Currently or been in a relationship where the following occur: No concerns reported THRIVE Score: 2 ELIZABETH-7 AMB Questionnaire ELIZABETH-7 Date ELIZABETH - 7 assessed: 12/27/24 Source: Developed by Drs. Misbah Calvo, Sandra Torres, Solomon Hamlin and colleagues, with an educational gabe from [employer]. Review of Systems Narrative Review of Systems - Respiratory: Reports a cough for about two months and significant congestion. - HEENT: Reports symptoms consistent with allergies, similar to a cold lasting two months. - Gastrointestinal: Reports heartburn, which is controlled by famotidine. - Constitutional: Reports attempting to lose weight. Const Denies headache(s) and Reports other (Reports attempts to lose weight) Eyes Denies loss of vision ENT Denies vertigo, Denies dizziness, Denies headache(s), Reports nasal congestion and Denies sore throat Card Denies chest pain, Denies leg edema and Denies lightheadedness Resp Reports cough, Denies hemoptysis and Denies wheezing GI Denies abdominal pain, Denies melena, Denies constipation, Reports heartburn, Denies diarrhea and Denies vomiting Denies urinary frequency, Denies dysuria and Denies urinary urgency Musc Denies arthralgias, Denies joint swelling, Denies numbness and Denies tingling Neuro Denies Abnormal speech present, Denies behavioral changes, Denies vertigo, Denies dizziness, Denies headache(s), Denies loss of vision, Denies memory loss, Denies numbness and Denies tingling Psych Denies anxiety, Denies behavioral changes, Denies depression, Denies memory loss and Denies panic attacks Prince/Lymph Denies easy bleeding and Denies easy bruising Aller/Immun Denies wheezing Physical exam (Primary Care) Vital Signs: Last Vital Signs Pulse 99 09/26/25 13:32 Resp 18 09/26/25 13:32 BP 138/76 09/26/25 13:32 Pulse Ox 96 09/26/25 13:32 Oxygen Delivery Method Room Air 09/26/25 13:32 BMI result Body Mass Index 34.7 Tobacco/Smoking Status: Tobacco use Status Tobacco use date assessed 09/26/25 09/26/25 13:38 Patient Tobacco Use Status Current everyday Tobacco 09/26/25 13:38 Tobacco use type Cigarette 09/26/25 13:38 e-Cigarette/Vaping Use Never Used 09/26/25 13:38 Thrive Assessment: Date of Thrive Assessment Date Thrive assessed 09/26/25 09/26/25 13:38 Currently or been in a relationship where the following occur: No concerns reported Narrative Physical Exam - Constitutional: Appears to have lost weight. - Cardiovascular: Heart auscultated. - Respiratory: Lungs auscultated. Const General: healthy appearing, no acute distress, alert and awake Nutritional Appearance: well nourished Orientation/consciousness: oriented to person, oriented to place and oriented to time HENMT Ears: TM's normal bilaterally General nose exam: Normal nasal mucous membranes and turbinates present Eyes Conjunctivae: conjunctivae normal Sclerae: sclerae normal Pupils: Equal, round and reactive pupils present Neck Neck: Yes no lymphadenopathy and Yes no JVD Thyroid: Thyroid normal Carotids: no bruits Resp Effort & Inspection: normal respiratory effort and not tachypneic Auscultation: no crackles, no rales, no rhonchi and no wheezes Cardio Rate: regular rate Rhythm: regular rhythm Heart sounds: no murmurs and normal S1 and S2 GI Palpation (GI): Soft to palpation, nontender, no hepatomegaly and no splenomegaly Auscultation: normal bowel sounds Skin General skin exam: no rashes or lesions noted and dry skin Neuro General: oriented to person, oriented to place and oriented to time Cranial nerves: Yes Equal, round and reactive pupils present Speech: No Abnormal speech present Gait exam (Neuro): Normal gait present Motor exam (neuro): no tremor noted Extrem Right upper extremity: full ROM Left upper extremity: full ROM Right lower extremity: full ROM; no edema Left lower extremity: full ROM; no edema Psych Mental Status: mental status grossly normal Speech and movement: Normal speech and movement present Affect: normal affect Attitude: cooperative Thought process: Normal thought process present Coding Level of Care Code Est Pt Level 4 (14605) Diagnoses Allergic rhinitis, unspecified seasonality, unspecified trigger J30.9 Allergic rhinitis trigger: unspecified Allergic rhinitis seasonality: unspecified Gastroesophageal reflux disease, unspecified whether esophagitis present K21.9 Esophagitis presence: esophagitis presence not specified Subacute cough R05.2 Cough type: subacute Asthma, unspecified asthma severity, unspecified whether complicated, unspecified whether persistent J45.909 Asthma severity: unspecified severity Asthma persistence: unspecified Asthma complication type: unspecified Tobacco abuse Z72.0 Methadone maintenance therapy patient F11.20 Essential hypertension I10 Hypertension type: essential hypertension Obesity (BMI 30-39.9) E66.9 Time Spent (min) 35 Assessment & Plan Assessment & Plan (1) Allergic rhinitis: Code(s): J30.9 - Allergic rhinitis, unspecified Category: Medical Qualifiers: Allergic rhinitis trigger: unspecified Allergic rhinitis seasonality: unspecified Qualified Code(s): J30.9 - Allergic rhinitis, unspecified (2) GERD (gastroesophageal reflux disease): Code(s): K21.9 - Gastro-esophageal reflux disease without esophagitis Category: Medical Qualifiers: Esophagitis presence: esophagitis presence not specified Qualified Code(s): K21.9 - Gastro-esophageal reflux disease without esophagitis (3) Cough: Code(s): R05.9 - Cough, unspecified Category: Medical Qualifiers: Cough type: subacute Qualified Code(s): R05.2 - Subacute cough (4) Asthma: Code(s): J45.909 - Unspecified asthma, uncomplicated Category: Medical Qualifiers: Asthma severity: unspecified severity Asthma persistence: unspecified Asthma complication type: unspecified Qualified Code(s): J45.909 - Unspecified asthma, uncomplicated (5) Tobacco abuse: Code(s): Z72.0 - Tobacco use Category: Medical (6) Methadone maintenance therapy patient: Code(s): F11.20 - Opioid dependence, uncomplicated Category: Medical (7) Hypertension: Code(s): I10 - Essential (primary) hypertension Category: Medical Qualifiers: Hypertension type: essential hypertension Qualified Code(s): I10 - Essential (primary) hypertension (8) Obesity (BMI 30-39.9): Code(s): E66.9 - Obesity, unspecified Category: Medical Plan Plan Patient was informed and verbally consented to the use of an ambient scribe for clinic note documentation during this visit. 1. Asthma And Chronic Cough The patient has been without her maintenance inhaler, Breo Ellipta, for six months and reports worsening breathing. A prescription for brand-name Breo Ellipta with the instruction no substitutions will be sent, as requested by her insurance. Due to a persistent cough and congestion for two months concerning for an underlying infection, especially given her history of asthma, a Z-Aristides (azithromycin) will be prescribed. I advised the patient to separate the doses of azithromycin and methadone to mitigate the risk of QT prolongation. 2. Allergic Rhinitis The patient reports symptoms suggestive of allergies lasting for two months and has a history of using Claritin. A prescription for Claritin will be provided to manage these symptoms. 3. Tobacco Use Disorder The patient reports an increase in smoking to about one pack per day due to stress. She currently attends weekly substance abuse counseling. 4. Opioid Use Disorder On Methadone Maintenance Therapy The patient is stable on her current methadone regimen, attending the clinic monthly and participating in weekly counseling. 5. Follow-Up Care The patient has not completed her ordered lab work. She has a scheduled follow- up appointment with Dr. Soni on January 03 at 11:00 AM, which she was advised to keep. 6. htn Blood pressure 138/76 mm Hg-systolic goal less than 130 mm Hg Reinforced low-salt diet We will continue to monitor Discussion Notes I discussed the plan to prescribe brand-name Breo Ellipta with the 'no substitutions' instruction as required by her insurance. Given her persistent cough and congestion for two months, along with her asthma, I recommended a course of a Z-Aristides as a precaution against a potential underlying infection. I explained that both methadone and the prescribed antibiotic can potentially cause a heart rhythm issue known as QT prolongation. As a safety measure, I advised her to take the antibiotic at a different time of day than her methadone, for instance, taking it at night if she takes methadone in the morning. We also addressed her allergy-like symptoms, and I will be prescribing Claritin. I confirmed her upcoming appointment with Dr. Soni on January 03 at 11 AM and advised her to keep it. Patient Instructions - I am sending a prescription for brand-name Breo Ellipta to your pharmacy. - I am also prescribing a Z-Aristides (antibiotic) for your cough. - To be safe, do not take the Z-Aristides at the same time as your methadone. - For example, if you take methadone in the morning, take the antibiotic at night. - I will also send a prescription for Claritin for your allergies. - Please remember to complete the blood work that was previously ordered. - Keep your scheduled appointment with Dr. Soni on January 03 at 11:00 AM. Medications: New Breo Ellipta 100-25 mcg/dose (fluticasone furoate-vilanterol) 1 inh inhalation DAILY 60 ea 2RF NS loratadine (Claritin) 10 mg PO DAILY PRN 90 tabs 1RF allergy symptoms azithromycin For 250 mg dose pack: take 500 mg today (day 1), then 250 mg for 4 days (days 2-5) PO 6 tabs 0RF Breo Ellipta 100-25 mcg/dose (fluticasone furoate-vilanterol) 1 inh inhalation DAILY 60 ea 3RF NS Discontinued fluticasone furoate-vilanterol 100-25 mcg/dose (Breo Ellipta) Discontinued Reason: Duplicate 1 inh inhalation DAILY 60 ea 3RF J45.909 - Unspecified asthma, uncomplicated
[2025-09-26 13:32] VITALS: BP 138/76; PULSE 99; RESP 18; O2SAT 96; BMI 34.7
--- OUTSIDE RECORDS SUMMARY | 2025-09-26 19:35 | XMS_ITS | Clinical Summary ---
Author Organization [facility] it Address [address] [place] [address] Care Team Providers Care Microfilm Machine Operator Name Role Phone Adina Polanco MD Primary Care Provider [phone] Medical History Medical History Date Comments Allergic [...] 2010 Dr Pineda History of polydrug abuse (C MS/HCC V24, CMS/HCC V28) 12/07/2018 DX:History of polydrug abuse (HCC); COMMENT: [...] Cervical Cancer Screening: P ap Smear 2007 HPV Vaccines (1 - 3-dose SCD M series) 2013 Depression Screening 10/13/2024 COVID-19 Vaccine ( - 2024-2 6 season) 2025 Influenza Vaccine (#1) 2025 RSV Immunization Adult Patie nts (1 - 1-dose 75+ series) 2061 HIB Vaccines Aged Out No longer eligi [...] age to complete this topic Meningococcal B Vaccine Aged Out No l onger eligible based on patient's age to complete this topic Pneumococcal Vaccine: Pediat rics (0 to 5 Years) and At-Risk Patients (6 to 49 Years) Aged Out No longer eligible b ased on patient's age to complete this topic RSV Immunization Patients Un kristina 20 months Aged Out No longer eligible b ased on patient's age to complete this topic Varicella Vaccines Aged Out No longer eligible based on patient's age to complete this topic Care Teams Microfilm Machine Operator Relationship Specialty Start Date End Date Adina Polanco MD PCP - General Internal Medicine 08/31/15
--- OUTSIDE RECORDS SUMMARY | 2025-09-26 19:35 | XMS_ITS | Encounter Summary ---
Author Organization [facility] Address [address] [place] [phone] Phone Care Team Providers Care Warehouse Man Name Role Phone Unavailable Primary Care Provider Unavailabl e Encounter Details Date Type Department Care Team (Late st Contact Info) Description 05/29/2017 Conversion Encounter [facility] - [address] [id number] Social History Tobacco Use Types Packs/Day Years [...]
--- OUTSIDE RECORDS SUMMARY | 2025-09-26 19:35 | XMS_ITS | Clinical Summary ---
Author Organization [facility] Address [address] [place] [phone] Phone Care Team Providers Care Supply Chain Manager Name Role Phone Unavailable Primary Care Provider [...] 11/12/2006 11/12/1996, 08/12/1996, 05/12/1996, Additional history exists HPV Vaccines (1 - 3-dose SCDM series) 2013 Influenza Vaccines (#1) 2025 COVID-19 Vaccine (2024- season) 2025 IPV Vaccines Completed 08/12/1996, 04/14, 02/09/1994, Additional history exists MMR Vaccines Completed [...]
== END 2025-09-26 14:10 | disposition home or self-care (01) ==
LOC: HO.HMCH 13:26
PROVIDERS: PCP Internal Medicine
DX: J30.9 Allergic rhinitis, unspecified (principal); F11.20 Opioid dependence, uncomplicated; E66.9 Obesity, unspecified; Z68.34 Body mass index [BMI] 34.0-34.9, adult; K21.9 Gastro-esophageal reflux disease without esophagitis; R05.2 Subacute cough; J45.909 Unspecified asthma, uncomplicated; Z72.0 Tobacco use; I10 Essential (primary) hypertension

== ENCOUNTER → 2025-09-26 13:25 | Outpatient (BNVA) | payer OTHER, SELFPAY | PROVIDERS: PCP Internal Medicine | DX: Z51.81 Encounter for therapeutic drug level monitoring (principal); J45.909 Unspecified asthma, uncomplicated; J30.9 Allergic rhinitis, unspecified; K21.9 Gastro-esophageal reflux disease without esophagitis; R05.2 Subacute cough; F11.20 Opioid dependence, uncomplicated; I10 Essential (primary) hypertension; E66.9 Obesity, unspecified; F17.210 Nicotine dependence, cigarettes, uncomplicated; Z68.34 Body mass index [BMI] 34.0-34.9, adult; Z79.899 Other long term (current) drug therapy | CPT/HCPCS: 99212 ==